=== PATIENT | male | born 1945 | race Caucasian/White ===

== ENCOUNTER 2019-07-16 14:51 | Emergency (ER) | payer MEDICARE, BC, SELFPAY ==
[2019-07-16 15:18] VITALS: BP 146/78; PULSE 91; RESP 18; TEMP 37.6; O2SAT 99
--- NOTE | 2019-07-16 15:49 | ED.BACK ---
HPI - Back Pain/Injury General Chief Complaint: Back Pain/Injury Stated Complaint: middle back pain Time Seen by Provider: 07/16/19 15:53 Source: patient and RN notes reviewed Mode of arrival: ambulatory Limitations: no limitations History of Present Illness HPI Narrative: This is a 74 years old male presented to the office for evaluation of exacerbation of his chronic back pain. Stated he has chronic back pain for over 20 years, normally controlled with [id number] and his pain medication however today pain is pretty bad. He thinks his pain is exacerbated from overwork in his yard over the past couple days. He has been busy working on his garden and building a new workshop. Denies trauma or injury to his back. Denies chest pain, shortness of breath, sweating associated with his back pain. He stated that his nurse practitioner normally give him anti-inflammatory medications to help with his pain when he has an exacerbation. Related Data Home Medications Medication Instructions Recorded Confirmed amiodarone 200 mg tablet 200 mg PO BID tablet 03/05/19 07/16/19 aspirin 81 mg tablet,delayed 81 mg PO DAILY 03/05/19 07/16/19 release blood sugar diagnostic #10 each 03/05/19 07/16/19 cholecalciferol (vitamin D3) 50 2,000 unit PO DAILY 03/05/19 07/16/19 mcg (2,000 unit) capsule glimepiride 4 mg tablet 4 mg PO QAM 03/05/19 07/16/19 lancets #50 each 03/05/19 07/16/19 lisinopril 30 mg tablet 30 mg PO DAILY 03/05/19 07/16/19 metformin 500 mg tablet 500 mg PO TID 03/05/19 07/16/19 metoprolol tartrate 50 mg tablet 50 mg PO Q12H 03/05/19 07/16/19 multivitamin 1 tablet PO DAILY 03/05/19 07/16/19 amlodipine 5 mg tablet 5 mg PO DAILY 03/10/19 07/16/19 rivaroxaban [Xarelto] 20 mg PO DAILY 07/16/19 07/16/19 Allergies Allergy/AdvReac Type Severity Reaction Status Date / Time diltiazem Allergy Mild hives Verified 07/16/19 15:23 Review of Systems Review of Systems: Narrative: CONSTITUTIONAL: Denies fever, chills ENT: Denies congestion CARDIOVASCULAR: Denies chest pain, palpitation, edema. RESPIRATORY: Denies dyspnea, cough GASTROINTESTINAL: Denies abdominal pain, vomiting, diarrhea. GENITOURINARY: Denies urinary symptoms SKIN: Denies rash/blister MUSCULOSKELETAL:Reports acute, chronic back pain; describes as sharping, worse when he moves his arms; pain is slightly better when he lies flat on his back against a hard floor. NEUROLOGIC: Denies lightheaded/dizziness PMFSH Past Medical History Medical History (Updated 07/16/19 @ 16:10 by JOHN Solomon) Atherosclerotic heart disease of [place] coronary artery without angina pectoris Back pain, chronic Essential (primary) hypertension Gait disorder Gastro-esophageal reflux disease without esophagitis Numbness of both lower extremities Pure hypercholesterolemia Type 2 diabetes mellitus without complications Surgical History Surgical History (Updated 07/16/19 @ 16:10 by JOHN Solomon) S/P CABG (coronary artery bypass graft) Family History Family History Father Cerebrovascular accident Mother Family history of lung cancer, Onset Age: 64 Patient's mother is Other Family history of cardiovascular disease Hypertension Social History Social History Smoking status: Former smoker Second hand tobacco smoke exposure: No Smoking end date: 03/25/86 Alcohol intake: current Gender identity (if verbalized by the patient): Male Comments At time of signature, I agree with nursing past medical, surgical, social and family history. There is no relevant family history pertinent to the presenting complaint. Exam Narrative: Exam Narrative: GENERAL: This is a well-nourished, well-developed patient, in no apparent distress. CARDIOVASCULAR: Regular rate and rhythm without murmurs, gallops, or rubs. RESPIRATORY: Clear to a
[2019-07-16] MEDS: methylPREDNISolone ACETATE 40 MG/ML VIAL 80 MG IM (16:11)
== END 2019-07-16 16:26 | disposition home or self-care (01) ==
PROVIDERS: Emergency Provider Nurse Practitioner; PCP Internal Medicine
DX: I25.10 Atherosclerotic heart disease of native coronary artery without angina pectoris (principal); I10 Essential (primary) hypertension; K21.9 Gastro-esophageal reflux disease without esophagitis; E78.00 Pure hypercholesterolemia, unspecified; G89.29 Other chronic pain; E11.9 Type 2 diabetes mellitus without complications; Z79.84 Long term (current) use of oral hypoglycemic drugs; Z79.01 Long term (current) use of anticoagulants; Z79.82 Long term (current) use of aspirin
CPT/HCPCS: 96372; 99213; G0463; J1030

== ENCOUNTER 2019-09-15 08:11 | Outpatient (CLI) | payer MEDICARE, BC, SELFPAY ==
--- NOTE | ~2019-09-15 | US_ITS ---
EXAMINATION: US abdomen complete EXAM DATE: 09/15/2019 09:34 INDICATION: Unspecified abdominal pain. TECHNIQUE: Multiple grayscale and Doppler images of the complete abdomen were obtained (by a technolo gist who performed the scan) and subsequently reviewed. There is no prior study for comparison. FINDINGS: The abdominal aorta is normal in caliber. Visualized portion IVC is patent. The pancreatic head a nd body are normal in appearance. The pancreatic tail is not visualized. The liver has normal echogenicity and contour. There are no focal liver lesions identified. There is no evidence of intrahepatic biliary duct dilation. Portal venous flow was seen in the hepatopedal , normal direction and has normal Doppler waveform. Common bile duct measures 4 mm, which is normal. The gallbladder wall is normal in thickness, with ex pected amount of distention. No sonographic evidence of pericholecystic fluid. There is no cholelit hiases. Technologist performing exam reports patient did not demonstrate sonographic Potts's sign. Please note that this sign is less reliable in patients who have received pain medication. Right kidney: There is normal contour and echogenicity. It measures 12.2 x 5.2 x 5.6 centimeters. T here is a cyst measuring 1.4 cm. There is no hydronephrosis. Left kidney: There is normal contour and echogenicity. It measures 11.8 x 6.0 x 8.9 centimeters. Th ere is a cyst measuring up to 2.2 cm. There is no hydronephrosis. The spleen measures 12.1 centimeters and is morphologically normal. IMPRESSION: Unremarkable complete abdominal ultrasound exam. Reviewed, dictated and finalized at location B.
== END 2019-09-15 08:12 | disposition home or self-care (01) ==
PROVIDERS: PCP Internal Medicine; Visit Provider Physician Assistant
DX: R10.9 Unspecified abdominal pain (principal)
CPT/HCPCS: 76700

== ENCOUNTER 2020-02-26 02:10 | Outpatient (CLI) | payer MEDICARE, BC, SELFPAY ==
[2020-02-26 19:10] LABS: SARS-CoV-2 RNA PCR Negative
== END 2020-02-26 02:11 | disposition home or self-care (01) ==
LOC: ANHCOVIDDT 02:11
PROVIDERS: PCP Internal Medicine; Visit Provider Specialist
DX: Z01.818 Encounter for other preprocedural examination (principal); Z20.828 Contact with and (suspected) exposure to other viral communicable diseases
CPT/HCPCS: 87635; C9803; U0003

== ENCOUNTER 2020-02-29 08:50 | Day surgery (SDC) | payer MEDICARE, BC, SELFPAY ==
[2020-02-26 15:30] VITALS: BMI 30.4
--- NOTE | 2020-02-29 02:57 | ECG_ITS ---
Measurements Intervals [place] Rate: 79 P: [place]: 0 QRS: 26 QRSD: 120 T: -4 QT: 427 QTc: 491 Interpretive Statements ATRIAL FIBRILLATION INTRAVENTRICULAR CONDUCTION DELAY CONSIDER INFERIOR INFARCT, AGE INDETERMINATE BORDERLINE T WAVE ABNORMALITY- ANTERIOR LEADS ABNORMAL ECG Electronically Signed On 02-29-2020 9:23:51 BUTTON FACING MACHINE OPERATOR by Arnold Lucero D.O.
--- NOTE | 2020-02-29 09:50 | WPDMODSED ---
Moderate Sedation Note-Pt Data Patient Data Diagnosis: Recurrent atrial fibrillation Present Complaint: This is a 74-year-old man with history of coronary artery disease, previous PCI and CABG. Patient also has atrial fibrillation being treated with amiodarone and systemic anticoagulation. He recently was found to have a symptomatic recurrence of his AFib in is admitted as an outpatient for an attempt at electrical cardioversion Procedure to be performed/Plan: DC cardioversion Allergies Allergy/AdvReac Type Severity Reaction Status Date / Time diltiazem Allergy Mild hives Verified 02/26/20 15:56 Home Medications Medication Instructions Recorded Confirmed Type amiodarone 200 mg tablet 200 mg PO BID tablet 03/05/19 02/26/20 History aspirin 81 mg tablet,delayed 81 mg PO DAILY 03/05/19 02/26/20 History release blood sugar diagnostic #10 each 03/05/19 07/16/19 History lancets #50 each 03/05/19 07/16/19 History lisinopril 30 mg tablet 30 mg PO DAILY 03/05/19 02/26/20 History metoprolol tartrate 50 mg tablet 50 mg PO Q12H 03/05/19 02/26/20 History multivitamin 1 tablet PO DAILY 03/05/19 02/26/20 History amlodipine 5 mg tablet 5 mg PO DAILY 03/10/19 02/26/20 History rivaroxaban [Xarelto] 20 mg PO DAILY 07/16/19 02/26/20 History apremilast 30 mg tablet 30 mg PO QAM AND QPM 07/31/19 02/26/20 History hydrochlorothiazide 25 mg tablet 25 mg PO DAILY 07/31/19 02/26/20 History rosuvastatin 20 mg tablet 20 mg PO DAILY 07/31/19 02/26/20 History pantoprazole 40 mg tablet,delayed 40 mg PO QAM #90 tablet 12/29/19 02/26/20 Rx release metformin 500 mg tablet 500 mg PO TID #270 tablet 02/02/20 02/26/20 Rx glimepiride 4 mg tablet 4 mg PO QAM #90 tablet 02/12/20 02/26/20 Rx Sedation/Anesthesia: No previous sedation/anesthesia problems (including family history). [facility] Past Medical History Medical History (Updated 09/01/19 @ 16:06 by Rick Landrum PA-C) Atherosclerotic heart disease of [place] coronary artery without angina pectoris Back pain, chronic Essential (primary) hypertension Gait disorder Gastro-esophageal reflux disease without esophagitis Numbness of both lower extremities Pure hypercholesterolemia Type 2 diabetes mellitus without complications Surgical History Surgical History S/P CABG (coronary artery bypass graft) Family History Family History Father Cerebrovascular accident Mother Family history of lung cancer, Onset Age: 64 Patient's mother is Other Family history of cardiovascular disease Hypertension Social History Social History Smoking status: Former smoker Tobacco type: cigarettes Second hand tobacco smoke exposure: No Smoking end date: 03/25/94 Alcohol intake: current Drinks per week: 1 Substance use: never Substance use type: does not use Living arrangements: with family Gender identity (if verbalized by the patient): Male Sexual Orientation (if Verbalized by the Patient): Straight or Heterosexual Spiritual care concerns: No Mod Sed Physical Exam Physical Exam Pre Procedural Exam: Normal: Appearance, Neck, Throat, Airway, Lungs, Heart Size, Neuro Exam and Extremities and Variation: Heart Rate and Heart Rhythm (Irregularly irregular) Hours since solid foods: 12 Hours since liquid intake: 12 Internal Medicine - PN: Obj Da Labs CBC & Chem 7: 02/29/20 09:22 02/29/20 09:22 ASA Classification/Sedation ASA Classification/Sedation Risks: Risks, benefits and alternatives explained and patient/family accepted plan for sedation. Patient re-evaluated immediately prior to sedation.
--- NOTE | 2020-02-29 09:52 | PM.IMHP ---
H&P: HPI History of Present Illness Date/Time: 02/29/20 09:52 Chief complaint: Afib Narrative: Blas Pickett is a 74 year old male with an established history of coronary artery disease and atrial fibrillation. He is admitted today as an outpatient for an attempt at electrical DC cardioversion of recurrence of atrial fib. Patient has a longstanding history of coronary disease and in the remote past underwent RCA stenting. He did very well for many years then the vessel progressed to a total occlusion with collateral filling from a non diseased left coronary artery. He then developed recurrent ischemic symptoms in 2016 at which time angiography demonstrated multivessel disease. He underwent surgical revascularization at that time. In addition to this he has a history of atrial fibrillation which has electrically cardioverted in the past. For a period of time he was treated with sotalol as his antiarrhythmic because of recurrences he was transition to amiodarone treatment and has been maintaining sinus rhythm. I last saw him in the office in September of this year which time he was doing well. In let the last week he contacted the office staff indicating he has symptoms of recurrent atrial fibrillation. An ECG in the office confirm the diagnosis and he was in therefore scheduled for attempted cardioversion electrically today. Review of Systems Constitutional: Constitutional: Reports fatigue and Reports lethargy Eyes: Eyes: Reports no additional eye complaints ENT: Reports system reviewed and no additional complaints, except as documented Cardiovascular: Cardiovascular: Reports as per HPI Respiratory: Respiratory: Reports dyspnea on exertion Gastrointestinal: Gastrointestinal: Reports no additional gastrointestinal complaints Musculoskeletal: Musculoskeletal: Reports no additional musculoskeletal complaints Integumentary/Breasts: Skin/Breast: Reports system reviewed and no additional complaints, except as docu Neurologic: Reports system reviewed and no additional complaints, except as documented [facility] Past Medical History Medical History (Updated 09/01/19 @ 16:06 by Rick Landrum PA-C) Atherosclerotic heart disease of [place] coronary artery without angina pectoris Back pain, chronic Essential (primary) hypertension Gait disorder Gastro-esophageal reflux disease without esophagitis Numbness of both lower extremities Pure hypercholesterolemia Type 2 diabetes mellitus without complications Surgical History Surgical History S/P CABG (coronary artery bypass graft) Family History Family History Father Cerebrovascular accident Mother Family history of lung cancer, Onset Age: 64 Patient's mother is Other Family history of cardiovascular disease Hypertension Social History Social History Smoking status: Former smoker Tobacco type: cigarettes Second hand tobacco smoke exposure: No Smoking end date: 03/25/94 Alcohol intake: current Drinks per week: 1 Substance use: never Substance use type: does not use Living arrangements: with family Gender identity (if verbalized by the patient): Male Sexual Orientation (if Verbalized by the Patient): Straight or Heterosexual Spiritual care concerns: No Meds Home Medications and Allergies Home Medications Medication Instructions Recorded Confirmed Type amiodarone 200 mg tablet 200 mg PO BID tablet 03/05/19 02/26/20 History aspirin 81 mg tablet,delayed 81 mg PO DAILY 03/05/19 02/26/20 History release blood sugar diagnostic #10 each 03/05/19 07/16/19 History lancets #50 each 03/05/19 07/16/19 History lisinopril 30 mg tablet 30 mg PO DAILY 03/05/19 02/26/20 History metoprolol tartrate 50 mg tablet 50 mg PO Q12H 03/05/19 02/26/20 History multivitamin 1 t
[2020-02-29 09:54] LABS: Anion Gap 7 mmol/L (8-16); Blood Urea Nitrogen 17 mg/dL (9-20); Calcium 9.5 mg/dL (8.4-10.2); Carbon Dioxide 32 mmol/L (22-30); Chloride 100 mmol/L (98-107); Estimated CRCL calculation 66 ml/min; Estimated Glomerular Filt Rate > 60; Glucose 174 mg/dL (75-110); Magnesium 1.7 mg/dL (1.6-2.3); Sodium 139 mmol/L (137-145)
[2020-02-29 10:05] VITALS: BP 147/84; PULSE 90; RESP 16; TEMP 36.6; O2SAT 98
[2020-02-29 10:10] VITALS: BP 147/84; PULSE 72; RESP 16; O2SAT 98
--- NOTE | 2020-02-29 10:11 | ECG_ITS ---
Measurements Intervals [place] Rate: 69 P: 11 [place]: 202 QRS: 23 QRSD: 117 T: -6 QT: 458 QTc: 494 Interpretive Statements SINUS RHYTHM INTRAVENTRICULAR CONDUCTION DELAY BORDERLINE ST-T WAVE ABNORMALITY- INFERIOR LEADS PROLONGED QT INTERVAL ABNORMAL ECG Electronically Signed On 02-29-2020 14:11:21 SOURCING ASSOCIATE by Arnold Lucero D.O.
--- NOTE | 2020-02-29 10:11 | WPDCARDPROC ---
Cardiac Cath Procedure Note Date of procedure:: 02/29/20 Performing physician:: Nawaf Rodriguez MD Indication:: Recurrent atrial fibrillation Brief clinical history:: This is a 74-year-old man with coronary disease, previous bypass grafting admitted with a symptomatic recurrence of atrial fib for an attempt at electrical outpatient cardioversion Procedure Procedure performed:: DC cardioversion Sedation/Medication given:: Propofol 100 mg total dosage Estimated blood loss:: No blood loss Procedure note:: Patient was brought to the cardiac catheterization lab holding area in the postabsorptive state. The patient was placed in the supine position with defibrillator patches in the AP position. The patient was then sedated with it with propofol in aliquots a total dosage of 100 mg was given which provided very good sedation. He was cardioverted with 200 joules in a synchronized fashion x1 shock restoring normal sinus rhythm. Findings:: As above Conclusion:: Recurrent atrial fibrillation symptomatic with fatigue and dyspnea. Patient has been successfully converted back to sinus rhythm using 200 joules x1 shock. Nawaf Rodriguez MD [facility]
[2020-02-29 10:15] VITALS: BP 133/75; PULSE 70; RESP 18; TEMP 36.5; O2SAT 96
[2020-02-29 10:30] VITALS: BP 122/74; PULSE 71; RESP 17; O2SAT 96
[2020-02-29 10:45] VITALS: BP 133/71; PULSE 69; RESP 20; O2SAT 95
[2020-02-29 11:00] VITALS: BP 128/74; PULSE 68; RESP 18; O2SAT 97
--- NOTE | 2020-02-29 11:59 | SUR.PHASEII ---
1150- Patient A &O x 4 at time of discharge. VSS, NSR, denies pain, ambulatory, and PIV removed. Patient provided discharge instructions and education on CV procedure and moderate sedation. All questions answered by RN- patient verbalizes understanding. Patient discharged home in wheelchair and picked up by .
== END 2020-02-29 11:50 | disposition home or self-care (01) ==
PROVIDERS: PCP Internal Medicine; Visit Provider Specialist
PROC: 5A2204Z Restoration of Cardiac Rhythm, Single (ICD-10-PCS; principal; 2020-02-29 10:00)
DX: I48.91 Unspecified atrial fibrillation (principal); I25.10 Atherosclerotic heart disease of native coronary artery without angina pectoris; Z95.1 Presence of aortocoronary bypass graft; I10 Essential (primary) hypertension; K21.9 Gastro-esophageal reflux disease without esophagitis; E11.9 Type 2 diabetes mellitus without complications; E78.00 Pure hypercholesterolemia, unspecified; Z87.891 Personal history of nicotine dependence; Z79.82 Long term (current) use of aspirin; Z79.01 Long term (current) use of anticoagulants; Z79.84 Long term (current) use of oral hypoglycemic drugs
CPT/HCPCS: 36415; 80048; 83735; 92960; 93005; J2704; J7040

== ENCOUNTER → 2020-04-28 09:20 | Outpatient (CLI) | payer MEDICARE, BC, SELFPAY ==
--- NOTE | ~2020-04-28 | CT_ITS ---
EXAMINATION: CT thoracic spine wo con, CT lumbar spine wo con EXAM DATE: 04/28/2020 09:41 INDICATION: Thoracic back pain. Lumbar back pain. TECHNIQUE: Spiral CT thoracolumbar spine was performed without contrast. Axial, coronal and sagittal images of the thoracic spine were reviewed. Axial, coronal and sagittal images of the lumbar spine we re reviewed. The dose-length product (DLP) for this examination was 1005.70 (accession [id number] ), 938.72 (accession [id number]) mGy-cm. The exposure was tailored according to patient size (au to mA exposure control), and iterative reconstruction (ASIR) was used as additional dose reduction te chnique. There is no prior study for comparison. FINDINGS: THORACIC SPINE: There is mild to moderate mid and lower thoracic disc disease. There are no acute fra ctures identified. Mild diffuse loss of mid thoracic vertebral body heights, chronic. The vertebral b odies are aligned in the AP dimension. Paraspinal soft tissue is unremarkable. Mild cervicothoracic l evoscoliosis. There is mild to moderate diffuse thoracic facet arthropathy. There is severe left neur al foraminal stenosis at C7-T1. There is moderate right neural foraminal stenosis from T4 through T6. Less neural foraminal stenosis at other lumbar levels. No appreciable central canal stenosis. LUMBAR SPINE: There is mild to moderate loss of the L4-5 disc height. The vertebral body and disc hei ghts are otherwise well maintained. The vertebral bodies are aligned in the AP dimension. There are n o acute fractures identified. No spondylolysis. Level by level evaluation: T12-L1: Disc does not extend beyond the endplate margin. Facet arthropathy: Mild. Neural foraminal stenosis: No stenosis. Central canal stenosis: No stenosis. L1-L2: There is a minimal diffuse disc bulge. Facet arthropathy: Mild. Neural foraminal stenosis: No stenosis. Central canal stenosis: No stenosis. L2-L3: There is a mild diffuse disc bulge. Facet arthropathy: Mild. Neural foraminal stenosis: Minimal left. Central canal stenosis: Mild. L3-L4: There is a mild diffuse disc bulge. Facet arthropathy: Mild to moderate. Neural foraminal stenosis: Mild to moderate right, mild left. Central canal stenosis: Mild. L4-L5: There is a moderate diffuse disc bulge. Facet arthropathy: Moderate. Neural foraminal stenosis: Moderate bilateral. Central canal stenosis: Mild to moderate. L5-S1: There is a mild diffuse disc bulge. Facet arthropathy: Moderate. Neural foraminal stenosis: Moderate left, mild to moderate right. Central canal stenosis: Mild. IMPRESSION: 1. Up to moderate lower lumbar spondylosis. 2. C7-T1 severe left neural foraminal stenosis. Reviewed, dictated and finalized at location B. ING MACHINE OPERATOR IMPRESSION: 1. Up to moderate lower lumbar spondylosis. 2. C7-T1 severe left neural foraminal stenosis.
== END ==
PROVIDERS: PCP Internal Medicine; Visit Provider Nurse Practitioner Adult Health
DX: M47.26 Other spondylosis with radiculopathy, lumbar region (principal)
CPT/HCPCS: 72128; 72131

== ENCOUNTER 2020-05-22 14:48 | Emergency (ER) | payer MEDICARE, BC, SELFPAY ==
--- NOTE | ~2020-05-22 | XR_ITS ---
EXAMINATION: XR chest 2V DATE: 05/22/2020 15:21 INDICATION: Cough. TECHNIQUE: Frontal and lateral views of the chest were obtained. COMPARISON: Chest 2 views 01/01/2018, CT thoracic spine 04/28/20 FINDINGS: The chest demonstrates clear lungs without pneumonia, pleural effusion, or pneumothorax. Th e heart size is normal. Median sternotomy wires and mediastinal surgical clips are seen, likely from prior coronary artery bypass grafting. There is mild chronic anterior wedging of a midthoracic verteb ral body. IMPRESSION: 1. No acute cardiopulmonary disease. Reviewed, dictated and finalized at location A. LE CARRIER
[2020-05-22 14:57] VITALS: BP 152/81; PULSE 81; RESP 18; TEMP 36.7; O2SAT 96
--- NOTE | 2020-05-22 15:08 | ED.GENADULT ---
HPI - General Adult General Chief complaint: Upper Respiratory Infection Stated complaint: chest cold Source: patient Mode of arrival: ambulatory Limitations: no limitations History of Present Illness HPI narrative: Patient presents for evaluation of cough for the last 2 weeks. He indicates the cough is intermittently productive of clear/white sputum. He states symptoms started as a head cold and then went down into the chest . He has associated shortness of breath both with exertion and at rest. He denies any associated chest pain. Denies fever, chills, leg swelling, joint pain, nausea, vomiting. No recent sick contacts. Of note he has an underlying history of hypertension, hyperlipidemia, diabetes, atrial fibrillation, coronary artery disease status post stent placement and bypass surgery. She underwent cardioversion in February 2020 and has been compliant with Xarelto and beta-lorene since that time. He has not experienced any recurrent symptoms to alert him that he is back in atrial fibrillation. He indicates prior to his last hospitalization he was cognizant of the fact that he was in atrial fibrillation as his heart skipped beat . Of note, he did receive his first Covid vaccination. He does not smoke. He contacted his primary provider that gave him prescription for Tessalon, which he indicates was ineffective. Prior to that time, he tried robitussin, which did not particularly help. Related Data Home Medications Medication Instructions Recorded Confirmed aspirin 81 mg tablet,delayed 81 mg PO DAILY 03/05/19 05/22/20 release blood sugar diagnostic #10 each 03/05/19 03/11/20 lancets #50 each 03/05/19 03/11/20 lisinopril 30 mg tablet 30 mg PO DAILY 03/05/19 05/22/20 metoprolol tartrate 50 mg tablet 50 mg PO Q12H 03/05/19 03/11/20 multivitamin 1 tablet PO DAILY 03/05/19 03/11/20 amlodipine 5 mg tablet 5 mg PO DAILY 03/10/19 05/22/20 Xarelto 20 mg PO DAILY 07/16/19 03/11/20 apremilast 30 mg tablet 30 mg PO QAM AND QPM 07/31/19 05/22/20 hydrochlorothiazide 25 mg tablet 25 mg PO DAILY 07/31/19 05/22/20 rosuvastatin 20 mg tablet 20 mg PO DAILY 07/31/19 03/11/20 amiodarone 200 mg tablet 400 mg PO BID tablet 03/11/20 05/22/20 Allergies Allergy/AdvReac Type Severity Reaction Status Date / Time diltiazem Allergy Mild hives Verified 03/11/20 09:28 Review of Systems Review of Systems: Narrative: CONSTITUTIONAL: Denies fever, chills, or sweats. EYES: Denies visual changes, redness, or discharge. ENT: Denies rhinorrhea, congestion, sore throat, or otalgia. CARDIOVASCULAR: Denies chest pain, palpitations, or edema. RESPIRATORY: Reports cough that is intermittently productive of clear/white sputum. Reports SOB. GASTROINTESTINAL: Denies abdominal pain, nausea, vomiting, or diarrhea. GENITOURINARY: Denies dysuria or hematuria. SKIN: Denies rash or itching. MUSCULOSKELETAL: Denies back pain, joint pain, or myalgia. NEUROLOGIC: Denies headache, numbness, dizziness, or weakness. PSYCHIATRIC: Denies anxiety or depression. [facility] Past Medical History Medical History Atherosclerotic heart disease of [place] coronary artery without angina pectoris Atrial fibrillation Back pain, chronic Essential (primary) hypertension Gait disorder Gastro-esophageal reflux disease without esophagitis Numbness of both lower extremities Pure hypercholesterolemia Type 2 diabetes mellitus without complications Surgical History Surgical History S/P CABG (coronary artery bypass graft) Family History Family History Father Cerebrovascular accident Mother Family history of lung cancer, Onset Age: 64 Patient's mother is Other Family history of cardiovascular disease Hypertension Social History Social History (Reviewed 05/22/20 @ 15:20 by Kael
--- NOTE | 2020-05-22 15:14 | ECG_ITS ---
Measurements Intervals [place] Rate: 78 P: 27 VT: 172 QRS: 28 QRSD: 112 T: 20 QT: 417 QTc: 477 Interpretive Statements SINUS RHYTHM INTRAVENTRICULAR CONDUCTION DELAY NONSPECIFIC ST & T-WAVE ABNORMALITY- ANTEROLAT/HIGH LAT LEADS BORDERLINE ECG Electronically Signed On 05-23-2020 7:17:08 SENIOR CYBER SECURITY ANALYST by Arnold Lucero D.O.
== END 2020-05-22 15:50 | disposition home or self-care (01) ==
PROVIDERS: Emergency Provider Nurse Practitioner; PCP Internal Medicine
DX: R05 Cough (principal); Z20.822 Contact with and (suspected) exposure to COVID-19; I48.91 Unspecified atrial fibrillation; I10 Essential (primary) hypertension; Z87.891 Personal history of nicotine dependence; I25.10 Atherosclerotic heart disease of native coronary artery without angina pectoris; K21.9 Gastro-esophageal reflux disease without esophagitis; E78.00 Pure hypercholesterolemia, unspecified; E11.9 Type 2 diabetes mellitus without complications
CPT/HCPCS: 71046; 87426; 93005; 99213; C9803; G0463

== ENCOUNTER 2020-05-23 08:51 | Outpatient (CLI) | payer MEDICARE, BC, SELFPAY ==
--- NOTE | ~2020-05-23 | NM_ITS ---
EXAMINATION: NM bone scan whole body DATE: 05/23/2020 11:45 INDICATION: Chronic pain disorder TECHNIQUE: 24.2 mCi Tc-99m HDP was administered intravenously. Delayed whole-body scintigrams were o btained. COMPARISON: CT thoracic and lumbar spine dated 04/28/2020 and chest radiograph dated 05/22/2020 FINDINGS: Mild likely degenerative joint centered uptake at the left knee most prominent at the medial and [place] llofemoral compartments. A few tiny foci of increased uptake along the sternum likely related to prio r median sternotomy with sternotomy wires evident on prior chest radiograph. No other foci of abnorma l bone uptake. Mild upper thoracic levocurvature. No abnormal soft tissue uptake. IMPRESSION: 1. Mild likely degenerative joint centered uptake at the left knee. 2. No bone lesions suspicious for malignancy/metastatic disease. Reviewed, dictated and finalized at location B. HOLOGY LECTURER
== END 2020-05-23 08:52 | disposition home or self-care (01) ==
PROVIDERS: PCP Internal Medicine; Visit Provider Nurse Practitioner Adult Health
DX: G89.4 Chronic pain syndrome (principal)
CPT/HCPCS: 78306; A9561

== ENCOUNTER 2022-04-27 01:53 | Day surgery (SDC) | payer MEDICARE, BC, SELFPAY ==
[2022-04-17 14:53] VITALS: BMI 32.3
--- NOTE | 2022-04-26 12:59 | WPDANESEPPF ---
Anes - Initial Pre Proc Eval Procedure: Operation Date: 04/27/22 09:30 Proposed Procedures p Esophagogastroduodenoscopy - Gavin Enciso MD Date/Time: 04/26/22 12:59 Surgeon: Gavin Enciso MD Pre Op Diagnosis: RANDALL Patient Data Age: 77 Gender: M Height: 1.8 m Weight: 105.2 kg Allergies Allergy/AdvReac Type Severity Reaction Status Date / Time diltiazem Allergy Intermediate hives Verified 04/27/22 08:29 Home Medications Medication Instructions Recorded Confirmed Type blood sugar diagnostic #10 ea 03/05/19 04/09/22 History lancets #50 ea 03/05/19 04/09/22 History lisinopril 30 mg tablet 30 mg PO DAILY 03/05/19 04/17/22 History metoprolol tartrate 50 mg tablet 50 mg PO Q12H 03/05/19 04/17/22 History multivitamin (Multiple Vitamins 1 tablet PO DAILY 03/05/19 04/17/22 History tablet) amlodipine 5 mg tablet 5 mg PO DAILY 03/10/19 04/17/22 History rivaroxaban 20 mg tablet (Xarelto) 20 mg PO DAILY 07/16/19 04/17/22 History hydrochlorothiazide 25 mg tablet 25 mg PO DAILY 07/31/19 04/17/22 History rosuvastatin 20 mg tablet 20 mg PO DAILY 07/31/19 04/17/22 History amiodarone 200 mg tablet 200 mg PO DAILY 03/11/20 04/17/22 History clopidogrel 75 mg tablet (Plavix) 75 mg PO DAILY 09/06/20 04/17/22 History glimepiride 4 mg tablet (Amaryl) 4 mg PO QAM #90 tabs 09/12/21 04/17/22 Rx tramadol 50 mg tablet 50 mg PO Q6H PRN Pain 09/19/21 04/17/22 History epinephrine 0.3 mg/0.3 mL 0.3 mg (0.3 mL) IM ONCE #1 ea 09/27/21 04/17/22 Rx injection, auto-injector (EpiPen) gabapentin 300 mg capsule 300 mg PO BID 09/27/21 04/17/22 History pantoprazole 40 mg tablet,delayed 40 mg PO QAM #90 tabs 12/21/21 04/17/22 Rx release metformin 500 mg tablet 500 mg PO TID #270 tabs 02/21/22 04/17/22 Rx ferrous sulfate 325 mg (65 mg 325 mg PO BID #60 tabs 03/12/22 04/17/22 Rx iron) tablet codeine 10 mg-guaifenesin 100 mg/5 5 ml PO .hs PRN cough #60 mL 04/13/22 04/17/22 Rx mL oral liquid azelastine 137 mcg (0.1 %) nasal 2 spray intranasal Q12H PRN 04/17/22 04/17/22 History spray aerosol Allergy Symptoms betamethasone valerate 0.1 % 1 applic topical BID PRN SKIN 04/30/22 Rx topical cream REACTION #45 grams sodium,potassium,mag sulfates 17.5 See Rx Instructions PO .COMPLEX 05/02/22 Rx gram-3.13 gram-1.6 gram oral soln #354 mL (Suprep Bowel Prep Kit) Patient hx anesthesia problems: none Family hx anesthesia problems: none Results Review: All pre-operative results and documents have been reviewed as part of the pre-operative evaluation. [facility] Past Medical History Medical History (Updated 04/27/22 @ 08:47 by Gavin Enciso MD) Atherosclerotic heart disease of [place] coronary artery without angina pectoris Atrial fibrillation Back pain, chronic Bilateral carotid artery dissection CAD (coronary artery disease) Essential (primary) hypertension Gait disorder Gastro-esophageal reflux disease without esophagitis Numbness of both lower extremities Pure hypercholesterolemia PVD (peripheral vascular disease) Type 2 diabetes mellitus without complications Surgical History Surgical History (Updated 04/26/22 @ 13:00 by David Randolph DO) History of coronary artery stent placement S/P CABG (coronary artery bypass graft) x4 vessel, 07/2016 Family History Family History Father Cerebrovascular accident Mother Family history of lung cancer, Onset Age: 64 Patient's mother is Other Family history of cardiovascular disease Hypertension Social History Social History (Updated 04/09/22 @ 11:06 by Parul Hernandez MA) Smoking packs per day: 2 Smoking cigarettes per day: 40.0 Years smoked: 31 Smoking pack-years: 62.00 Smoking status: Former smoker Tobacco type: cigarettes Second hand tobacco smoke exposure: No Smoking end date: 03/25/94 Alcohol intake: current Drinks per week: 14 Alcohol use details: JANICE
[2022-04-27 08:35] VITALS: BP 137/85; PULSE 82; RESP 18; TEMP 36.2; O2SAT 99
--- NOTE | 2022-04-27 08:45 | PM.HPGS ---
History of Present Illness History of Present Illness Consent: Risks, benefits, and alternatives have been discussed and questions answered. Patient agrees to proceed with procedure. Chief complaint: RANDALL Narrative: Blas Pickett is a 77 year old male Presents for colonoscopy an EGD to evaluate iron deficiency anemia. Patient has a history of atherosclerotic heart disease. Has a history of bypass grafting , And also heart stenting, And atrial fibrillation. in the past is on chronic anticoagulation with Xarelto and Plavix. Since August has noticed a decline in hemoglobin. Currently felt have iron deficiency anemia. Hemoglobin no decline on since starting iron. He has had no obvious blood in his stools. He does bruise easily on his arms. He has no history of blood in his urine or nose bleeds. Colonoscopy an EGD requested to assess for potential GI contributing causes for anemia. Patient states he has not had a stool Hemoccult performed recently. Review of Systems Review of Systems: Review of systems noncontributory. [facility] Past Medical History Medical History (Updated 04/27/22 @ 08:47 by Gavin Enciso MD) Atherosclerotic heart disease of [place] coronary artery without angina pectoris Atrial fibrillation Back pain, chronic Bilateral carotid artery dissection CAD (coronary artery disease) Essential (primary) hypertension Gait disorder Gastro-esophageal reflux disease without esophagitis Numbness of both lower extremities Pure hypercholesterolemia PVD (peripheral vascular disease) Type 2 diabetes mellitus without complications Surgical History Surgical History (Updated 04/26/22 @ 13:00 by David Randolph DO) History of coronary artery stent placement S/P CABG (coronary artery bypass graft) x4 vessel, 07/2016 Family History Family History Father Cerebrovascular accident Mother Family history of lung cancer, Onset Age: 64 Patient's mother is Other Family history of cardiovascular disease Hypertension Social History Social History (Updated 04/09/22 @ 11:06 by Parul Hernandez MA) Smoking packs per day: 2 Smoking cigarettes per day: 40.0 Years smoked: 31 Smoking pack-years: 62.00 Smoking status: Former smoker Tobacco type: cigarettes Second hand tobacco smoke exposure: No Smoking end date: 03/25/94 Alcohol intake: current Drinks per week: 14 Alcohol use details: [employer] COKE OR STRAIGHT Substance use: current Substance use type: marijuana Other substance usage details: GUMMIES OCC. Lack of Transportation: No Lack of Food: Never True Current Housing: I Have Housing Concerned About Future Housing: No Difficulty Paying Gas/Electric Bills: No Difficulty Paying for Meds: No Currently Unemployed: No Education: Trade/Vocational Certificate Difficulty w/ Childcare or Family Care: No Living arrangements: with family Gender identity (if verbalized by the patient): Male Sexual Orientation (if Verbalized by the Patient): Straight or Heterosexual Spiritual care concerns: No Meds Home Medications and Allergies Home Medications Medication Instructions Recorded Confirmed Type blood sugar diagnostic #10 ea 03/05/19 04/09/22 History lancets #50 ea 03/05/19 04/09/22 History lisinopril 30 mg tablet 30 mg PO DAILY 03/05/19 04/17/22 History metoprolol tartrate 50 mg tablet 50 mg PO Q12H 03/05/19 04/17/22 History multivitamin (Multiple Vitamins 1 tablet PO DAILY 03/05/19 04/17/22 History tablet) amlodipine 5 mg tablet 5 mg PO DAILY 03/10/19 04/17/22 History rivaroxaban 20 mg tablet (Xarelto) 20 mg PO DAILY 07/16/19 04/17/22 History hydrochlorothiazide 25 mg tablet 25 mg PO DAILY 07/31/19 04/17/22 History rosuvastatin 20 mg tablet 20 mg PO DAILY 07/31/19 04/17/22 History amiodarone 200 mg tablet 200 mg PO DAILY 03/11/20 04/17/22 History clopidogrel 75 mg tablet (Plavix
[2022-04-27 08:49] LABS: Glucose Point of Care 200 mg/dl (65-105)
[2022-04-27] MEDS: LACTATED RINGERS 1,000 ML 150 ML IV CONT (08:49)
[2022-04-27 09:24] VITALS: BP 140/74; PULSE 95; RESP 22; O2SAT 96
[2022-04-27 09:34] VITALS: BP 113/68; PULSE 86; RESP 22; O2SAT 95
[2022-04-27 09:44] VITALS: BP 132/86; PULSE 93; RESP 22; O2SAT 96
== END 2022-04-27 10:00 | disposition home or self-care (01) ==
PROVIDERS: PCP Internal Medicine; Visit Provider Internal Medicine Gastroenterology
PROC: 0DJ08ZZ Inspection of Upper Intestinal Tract, Via Natural or Artificial Opening Endoscopic (ICD-10-PCS; CPT 43235; principal; 2022-04-27 09:30)
DX: D50.9 Iron deficiency anemia, unspecified (principal); I25.10 Atherosclerotic heart disease of native coronary artery without angina pectoris; I48.91 Unspecified atrial fibrillation; I10 Essential (primary) hypertension; K21.9 Gastro-esophageal reflux disease without esophagitis; E11.51 Type 2 diabetes mellitus with diabetic peripheral angiopathy without gangrene; E78.00 Pure hypercholesterolemia, unspecified; Z87.891 Personal history of nicotine dependence; F12.90 Cannabis use, unspecified, uncomplicated; Z79.01 Long term (current) use of anticoagulants; Z79.84 Long term (current) use of oral hypoglycemic drugs; Z79.02 Long term (current) use of antithrombotics/antiplatelets; Z95.1 Presence of aortocoronary bypass graft; Z95.5 Presence of coronary angioplasty implant and graft; E66.9 Obesity, unspecified; Z68.31 Body mass index [BMI] 31.0-31.9, adult
CPT/HCPCS: 43235; 82948; J2704; J7120

== ENCOUNTER 2022-06-01 01:35 | Day surgery (SDC) | payer MEDICARE, BC, SELFPAY ==
[2022-05-22 14:49] VITALS: BMI 30.7
[2022-06-01 06:57] LABS: Glucose Point of Care 164 mg/dl (65-105)
[2022-06-01 07:02] VITALS: BP 138/86; PULSE 85; RESP 18; TEMP 36.6; O2SAT 98
[2022-06-01] MEDS: LACTATED RINGERS 1,000 ML 150 ML IV CONT (07:10)
--- NOTE | 2022-06-01 07:37 | WPDANESEPPF ---
Anes - Initial Pre Proc Eval Procedure: Operation Date: 06/01/22 08:00 Proposed Procedures p Screening Colonoscopy - Gavin Enciso MD Date/Time: 06/01/22 07:37 Surgeon: Gavin Enciso MD Pre Op Diagnosis: neoplasm screening Patient Data Age: 77 Gender: M Height: 1.8 m Weight: 100.6 kg Last Vital Signs Temp 36.6 C 06/01/22 07:02 Pulse 85 06/01/22 07:02 Resp 18 06/01/22 07:02 BP 138/86 06/01/22 07:02 Pulse Ox 98 06/01/22 07:02 O2 Del Method Room Air 06/01/22 07:02 Allergies Allergy/AdvReac Type Severity Reaction Status Date / Time diltiazem Allergy Intermediate hives Verified 06/01/22 06:56 Home Medications Medication Instructions Recorded Confirmed Type blood sugar diagnostic #10 ea 03/05/19 06/01/22 History lancets #50 ea 03/05/19 06/01/22 History lisinopril 30 mg tablet 30 mg PO DAILY 03/05/19 06/01/22 History metoprolol tartrate 50 mg tablet 50 mg PO Q12H 03/05/19 06/01/22 History multivitamin (Multiple Vitamins 1 tablet PO DAILY 03/05/19 06/01/22 History tablet) amlodipine 5 mg tablet 5 mg PO DAILY 03/10/19 06/01/22 History rivaroxaban 20 mg tablet (Xarelto) 20 mg PO DAILY 07/16/19 06/01/22 History hydrochlorothiazide 25 mg tablet 25 mg PO DAILY 07/31/19 06/01/22 History rosuvastatin 20 mg tablet 20 mg PO DAILY 07/31/19 06/01/22 History amiodarone 200 mg tablet 200 mg PO DAILY 03/11/20 06/01/22 History clopidogrel 75 mg tablet (Plavix) 75 mg PO DAILY 09/06/20 06/01/22 History glimepiride 4 mg tablet (Amaryl) 4 mg PO QAM #90 tabs 09/12/21 06/01/22 Rx tramadol 50 mg tablet 50 mg PO Q6H PRN Pain 09/19/21 06/01/22 History epinephrine 0.3 mg/0.3 mL 0.3 mg (0.3 mL) IM ONCE #1 ea 09/27/21 06/01/22 Rx injection, auto-injector (EpiPen) gabapentin 300 mg capsule 300 mg PO BID 09/27/21 06/01/22 History pantoprazole 40 mg tablet,delayed 40 mg PO QAM #90 tabs 12/21/21 06/01/22 Rx release metformin 500 mg tablet 500 mg PO TID #270 tabs 02/21/22 06/01/22 Rx ferrous sulfate 325 mg (65 mg 325 mg PO BID #60 tabs 03/12/22 06/01/22 Rx iron) tablet codeine 10 mg-guaifenesin 100 mg/5 5 ml PO .hs PRN cough #60 mL 04/13/22 06/01/22 Rx mL oral liquid azelastine 137 mcg (0.1 %) nasal 2 spray intranasal Q12H PRN 04/17/22 06/01/22 History spray aerosol Allergy Symptoms betamethasone valerate 0.1 % 1 applic topical BID PRN SKIN 04/30/22 06/01/22 Rx topical cream REACTION #45 grams sodium,potassium,mag sulfates 17.5 See Rx Instructions PO .COMPLEX 05/02/22 06/01/22 Rx gram-3.13 gram-1.6 gram oral soln #354 mL (Suprep Bowel Prep Kit) Laboratory Tests 06/01/22 06:51 POC Capillary Glucose 164 mg/dl H mg/dl (65-105) Patient hx anesthesia problems: none Family hx anesthesia problems: none Results Review: All pre-operative results and documents have been reviewed as part of the pre-operative evaluation. [facility] Past Medical History Medical History (Updated 04/27/22 @ 08:47 by Gavin Enciso MD) Atherosclerotic heart disease of [place] coronary artery without angina pectoris Atrial fibrillation Back pain, chronic Bilateral carotid artery dissection CAD (coronary artery disease) Essential (primary) hypertension Gait disorder Gastro-esophageal reflux disease without esophagitis Numbness of both lower extremities Pure hypercholesterolemia PVD (peripheral vascular disease) Type 2 diabetes mellitus without complications Surgical History Surgical History (Updated 04/26/22 @ 13:00 by David Randolph DO) History of coronary artery stent placement S/P CABG (coronary artery bypass graft) x4 vessel, 07/2016 Family History Family History Father Cerebrovascular accident Mother Family history of lung cancer, Onset Age: 64 Patient's mother is Other Family history of cardiovascular disease Hypertension Social History Social History (Updated 04/09/22 @ 11:06 by Parul
--- NOTE | 2022-06-01 07:55 | PM.HPGS ---
History of Present Illness History of Present Illness Consent: Risks, benefits, and alternatives have been discussed and questions answered. Patient agrees to proceed with procedure. Chief complaint: neoplasm screening Narrative: Blas Pickett is a 77 year old male Presents for colonoscopy. Patient recently found to have iron deficiency anemia. Recent EGD was unremarkable. Patient presents today for colonoscopy to assess for possible lower GI sources contributing to anemia. Patient has a history of atherosclerotic heart disease. He has a history of heart stenting. He remains on Xarelto and Plavix. These are on hold for colonoscopy. Patient denies any obvious blood in his stools. Weight appetite and bowel movements are normal. Review of Systems Review of Systems: Review of systems noncontributory. [facility] Past Medical History Medical History (Updated 04/27/22 @ 08:47 by Gavin Enciso MD) Atherosclerotic heart disease of [place] coronary artery without angina pectoris Atrial fibrillation Back pain, chronic Bilateral carotid artery dissection CAD (coronary artery disease) Essential (primary) hypertension Gait disorder Gastro-esophageal reflux disease without esophagitis Numbness of both lower extremities Pure hypercholesterolemia PVD (peripheral vascular disease) Type 2 diabetes mellitus without complications Surgical History Surgical History (Updated 04/26/22 @ 13:00 by David Randolph DO) History of coronary artery stent placement S/P CABG (coronary artery bypass graft) x4 vessel, 07/2016 Family History Family History Father Cerebrovascular accident Mother Family history of lung cancer, Onset Age: 64 Patient's mother is Other Family history of cardiovascular disease Hypertension Social History Social History (Updated 04/09/22 @ 11:06 by Parul Hernandez MA) Smoking packs per day: 2 Smoking cigarettes per day: 40.0 Years smoked: 31 Smoking pack-years: 62.00 Smoking status: Former smoker Tobacco type: cigarettes Second hand tobacco smoke exposure: No Smoking end date: 03/25/94 Alcohol intake: current Drinks per week: 14 Alcohol use details: [employer]KE OR STRAIGHT Substance use: current Substance use type: marijuana Other substance usage details: GUMMIDWAYNE OCC. Lack of Transportation: No Lack of Food: Never True Current Housing: I Have Housing Concerned About Future Housing: No Difficulty Paying Gas/Electric Bills: No Difficulty Paying for Meds: No Currently Unemployed: No Education: Trade/Vocational Certificate Difficulty w/ Childcare or Family Care: No Living arrangements: with family Gender identity (if verbalized by the patient): Male Sexual Orientation (if Verbalized by the Patient): Straight or Heterosexual Spiritual care concerns: No Meds Home Medications and Allergies Home Medications Medication Instructions Recorded Confirmed Type blood sugar diagnostic #10 ea 03/05/19 06/01/22 History lancets #50 ea 03/05/19 06/01/22 History lisinopril 30 mg tablet 30 mg PO DAILY 03/05/19 06/01/22 History metoprolol tartrate 50 mg tablet 50 mg PO Q12H 03/05/19 06/01/22 History multivitamin (Multiple Vitamins 1 tablet PO DAILY 03/05/19 06/01/22 History tablet) amlodipine 5 mg tablet 5 mg PO DAILY 03/10/19 06/01/22 History rivaroxaban 20 mg tablet (Xarelto) 20 mg PO DAILY 07/16/19 06/01/22 History hydrochlorothiazide 25 mg tablet 25 mg PO DAILY 07/31/19 06/01/22 History rosuvastatin 20 mg tablet 20 mg PO DAILY 07/31/19 06/01/22 History amiodarone 200 mg tablet 200 mg PO DAILY 03/11/20 06/01/22 History clopidogrel 75 mg tablet (Plavix) 75 mg PO DAILY 09/06/20 06/01/22 History glimepiride 4 mg tablet (Amaryl) 4 mg PO QAM #90 tabs 09/12/21 06/01/22 Rx tramadol 50 mg tablet 50 mg PO Q6H PRN Pain 09/19/21 06/01/22 History epinephrine 0.3 mg/0.3 mL 0.3 mg
[2022-06-01 08:23] VITALS: BP 114/75; PULSE 81; RESP 18; O2SAT 98
[2022-06-01 08:33] VITALS: BP 128/87; PULSE 77; RESP 20; O2SAT 97
[2022-06-01 08:43] VITALS: BP 137/86; PULSE 76; RESP 20; O2SAT 97
== END 2022-06-01 08:50 | disposition home or self-care (01) ==
PROVIDERS: PCP Internal Medicine; Visit Provider Internal Medicine Gastroenterology
PROC: 0DJD8ZZ Inspection of Lower Intestinal Tract, Via Natural or Artificial Opening Endoscopic (ICD-10-PCS; CPT 45378; principal; 2022-06-01 08:00)
DX: D50.9 Iron deficiency anemia, unspecified (principal); K63.9 Disease of intestine, unspecified; K57.30 Diverticulosis of large intestine without perforation or abscess without bleeding; I25.10 Atherosclerotic heart disease of native coronary artery without angina pectoris; I48.20 Chronic atrial fibrillation, unspecified; I10 Essential (primary) hypertension; K21.9 Gastro-esophageal reflux disease without esophagitis; K64.8 Other hemorrhoids; E78.00 Pure hypercholesterolemia, unspecified; E11.51 Type 2 diabetes mellitus with diabetic peripheral angiopathy without gangrene; G89.29 Other chronic pain; M54.9 Dorsalgia, unspecified; Z95.5 Presence of coronary angioplasty implant and graft; Z79.01 Long term (current) use of anticoagulants; Z95.1 Presence of aortocoronary bypass graft; Z87.891 Personal history of nicotine dependence
CPT/HCPCS: 45385; 82948; 88305; J2704; J7120

== ENCOUNTER 2022-06-25 08:15 | Outpatient (CLI) | payer MEDICARE, BC, SELFPAY ==
--- NOTE | ~2022-06-25 | US_ITS ---
EXAMINATION: US art doppler w press LE BI DATE: 06/25/2022 09:10 INDICATION: Peripheral arterial occlusive disease post peripheral artery angioplasty. TECHNIQUE: Segmental pressures and plethysmographic and Doppler waveforms of the brachial and lower e xtremity arteries were obtained. COMPARISON: None. FINDINGS: Right and left brachial artery pressures of 172 mm Hg and 163 mm Hg, respectively, are concordant (no rmal difference <= 30 mmHg). The right and left high-thigh pressure indices are unable to be obtained due to inability to occlude the vessels (normal > 1.2). The right ankle-brachial index (CRISTOPHER) is 0.77 (normal >= 0.9-1). The right great toe-brachial index (T BI) is 0.69 (normal >= 0.6-0.8). The right lower extremity segmental pressure gradients are increased between the right exzlz-ohs-lblu popliteal artery and the right dorsalis pedis and posterior tibial arteries at the right ankle (normal gradients <= 20-30 mmHg between adjacent levels on the same leg o r the same levels on the two legs). Arterial waveforms are biphasic with brisk systolic upstrokes thr oughout the arteries of the right lower limb. The left CRISTOPHER is 0.83. The left TBI is 0.48. The left lower extremity segmental pressure gradients are increased between the left jfdic-uzr-tjah popliteal artery and the left dorsalis pedis and posterior tibial arteries at the left ankle. Arterial waveforms are biphasic with brisk systolic upstrokes thr oughout the arteries of the left lower limb. IMPRESSION: 1. Arterial occlusive disease to bilateral lower limbs with mildly decreased bilateral ABIs and left TBI. Reviewed, dictated and finalized at location A. IMPRESSION: 1. Arterial occlusive disease to bilateral lower limbs with mildly decreased bi lateral ABIs and left TBI.
== END 2022-06-25 08:16 | disposition home or self-care (01) ==
PROVIDERS: PCP Internal Medicine; Visit Provider Internal Medicine Cardiovascular Disease
DX: I73.9 Peripheral vascular disease, unspecified (principal); Z98.62 Peripheral vascular angioplasty status
CPT/HCPCS: 93923

== ENCOUNTER 2023-06-24 08:29 | Outpatient (CLI) | payer MEDICARE, BC, SELFPAY ==
--- NOTE | ~2023-06-24 | US_ITS ---
EXAMINATION: US arterial ankle brachial ind DATE: 06/24/2023 09:23 INDICATION: Peripheral vascular disease. TECHNIQUE: Segmental pressures and plethysmographic and Doppler waveforms of the brachial and lower e xtremity arteries were obtained. COMPARISON: Arterial Doppler and segmental pressures 06/25/2022 FINDINGS: Right and left brachial artery pressures of 137 mm Hg and 140 mm Hg, respectively, are concordant (no rmal difference <= 30 mmHg). The right ankle-brachial index (CRISTOPHER) is 0.89 (normal >= 0.9-1.0). The right great toe-brachial index (TBI) is 0.34 (normal >= 0.65). Arterial Doppler waveforms are biphasic in posterior tibial artery an d biphasic in dorsalis pedis. The left CRISTOPHER is 1.06. The left TBI is 0.39. Arterial Doppler waveforms are monophasic in posterior ti bial artery and biphasic in dorsalis pedis. IMPRESSION: 1. Moderately decreased right CRISTOPHER, normal left CRISTOPHER, decreased TBIs with improvement from 06/25/2022, co nsistent with arterial occlusive disease. Reviewed, dictated and finalized at location A. IMPRESSION: 1. Moderately decreased right CRISTOPHER, normal left CRISTOPHER, decreased TBIs with improve ment from 06/25/2022, consistent with arterial occlusive disease.
== END 2023-06-24 08:30 | disposition home or self-care (01) ==
PROVIDERS: PCP Internal Medicine; Visit Provider Internal Medicine Cardiovascular Disease
DX: I73.9 Peripheral vascular disease, unspecified (principal); Z98.62 Peripheral vascular angioplasty status
CPT/HCPCS: 93922

== ENCOUNTER 2023-11-15 08:11 | Outpatient (CLI) | payer MEDICARE, BC, SELFPAY ==
--- NOTE | ~2023-11-15 | CT_ITS ---
EXAMINATION: CT brain wo/w con DATE: 11/15/2023 08:58 INDICATION: Amnesia TECHNIQUE: Computed tomography (CT) of the head was performed without and with 100 mL Omnipaque-350 i ntravenous contrast. Sagittal and coronal reconstructions were performed. The mA was adjusted accordi ng to patient size. Iterative reconstruction technique was employed. The dose-length product was 1349 .03 mGy-cm. COMPARISON: head CT dated 03/08/2016 FINDINGS: There is extensive white matter T2 hyperintensity. This is however slightly more prominent and with a ssociated mass effect in the left cerebral hemisphere where there is thickening of the gyri with effa cement of the sulci, asymmetric distortion and decreased size of the left lateral ventricle as well a s 6 mm [id number] midline shift at the ventricular septum. There is however preservation of the mo re prominent [place]-white matter distinction consistent with vasogenic edema surrounding a 5.2 x 3.6 x 4.2 cm peripherally enhancing mass in the left parieto-occipital region which is concerning for [place]. There are couple additional enhancing masses in the posterior fossa at the entrance is to the bilateral internal auditory canals which measures 14 x 12 mm on the right and 16 x 12 mm on the left. No acute intracranial hemorrhage or abnormal extra axial fluid collection. Changes of bilateral intr aocular lens replacement. The orbits, paranasal sinuses and mastoid air cells are normal. Changes of bilateral intraocular lens replacement. IMPRESSION: 1. 5.2 x 3.6 x 4.2 cm peripherally enhancing left parieto-occipital mass with prominent this projecti ng in the left sternal hemisphere resulting 6 mm [id number] midline shift. 2. A couple additional enhancing masses at the entrance is to the bilateral internal auditory canals which can be seen with metastatic disease however also suggests possibility of acoustic neuromas or m eningiomas in the setting of neurofibromatosis. 3. Superimposed more extensive diffuse white matter hypoattenuation consistent with chronic small ves billy ischemic disease. Reviewed, dictated and finalized at location A. IMPRESSION: 1. 5.2 x 3.6 x 4.2 cm peripherally enhancing left parieto-occipital mass with p rominent this projecting in the left sternal hemisphere resulting 6 mm left-to- right midline shift. 2. A couple additional enhancing masses at the entrance is to the bilateral int ernal auditory canals which can be seen with metastatic disease however also staton ggests possibility of acoustic neuromas or meningiomas in the setting of neurof ibromatosis. 3. Superimposed more extensive diffuse white matter hypoattenuation consistent with chronic small vessel ischemic disease.
[2023-11-15 08:40] LABS: Estimated Glomerular Filt Rate 35
== END 2023-11-15 08:12 ==
LOC: MICIMG 08:12
PROVIDERS: PCP Internal Medicine; Visit Provider Internal Medicine
DX: R41.3 Other amnesia (principal)
CPT/HCPCS: 70470; Q9967

== ENCOUNTER 2023-11-28 14:32 | Outpatient (CLI) | payer MEDICARE, BC, SELFPAY ==
--- NOTE | ~2023-11-28 | CT_ITS ---
EXAMINATION: CT chest abdomen pelvis w con DATE: 11/28/2023 15:18 INDICATION: Glioma. TECHNIQUE: Computed tomography (CT) of the chest, abdomen, and pelvis was performed with 100 mL Omnip aque 350 intravenous contrast. Automated exposure control and iterative reconstruction technique were employed. The dose-length product was 1067.18 mGy-cm. COMPARISON: None FINDINGS: CHEST CT: There is mild emphysema. The lungs demonstrate mild atelectasis. No pleural effusion. Cardiomegaly is noted. There are coronary artery calcifications. There are changes of coronary artery bypass graftin g. No pericardial effusion. There is a 4 mm nodule in right thyroid lobe, likely not clinically signi ficant. Aortic atherosclerosis is noted. There is moderate thoracic spondylosis. There is mild chroni c anterior wedging of multiple vertebral bodies. ABDOMEN/PELVIS CT: The liver is normal. There is a gallstone in the gallbladder, which is normal in size. Calcifications in the spleen are consistent with old granulomatous disease. The pancreas and adrenal glands are nor mal. There are cysts in the kidneys measuring up to 3.5 cm on the left. There is a 6.0 x 4.3 cm mass in the peritoneum abutting small bowel. There are no dilated loops of bowel. The appendix is normal. There are no pathologically enlarged lymph nodes. There is no free intraperitoneal fluid. There is mo derate lumbar spondylosis. IMPRESSION: 1. 6.0 cm mass in the peritoneum abutting small bowel. The differential diagnosis includes gastrointe stinal stromal tumor and metastatic disease. CT-guided biopsy is recommended. Reviewed, dictated and finalized at location A. IMPRESSION: 1. 6.0 cm mass in the peritoneum abutting small bowel. The differential diagnos is includes gastrointestinal stromal tumor and metastatic disease. CT-guided bi opsy is recommended.
== END 2023-11-28 14:33 | disposition home or self-care (01) ==
PROVIDERS: PCP Internal Medicine; Visit Provider Family Medicine
DX: C71.9 Malignant neoplasm of brain, unspecified (principal)
CPT/HCPCS: 71260; 74177; Q9967

== ENCOUNTER 2023-12-17 14:13 | Outpatient (CLI) | payer MEDICARE, BC, SELFPAY ==
--- NOTE | ~2023-12-17 | CT_ITS ---
EXAMINATION: CT brain w con DATE: 12/17/2023 14:49 INDICATION: Glioma. TECHNIQUE: Computed tomography (CT) of the head was performed with 100 mL Omnipaque 350 intravenous c ontrast. The mA was adjusted according to patient size. Iterative reconstruction technique was employ ed. The dose-length product was 674.51 mGy-cm. COMPARISON: Head CT 11/15/2023, 03/08/2016 FINDINGS: In the left parietal-occipital region, there is a 5.3 x 3.5 x 4.2 cm peripherally enhancing mass. There is a 14 x 15 mm enhancing mass in right cerebellopontine angle. There is a 15 x 12 mm en hancing mass in left cerebellopontine angle. There is no acute ischemic infarct or intracranial hemor rhage. There are scattered areas of low attenuation in the cerebral white matter. The ventricles are normal in size. There are likely changes of ocular lens replacement surgeries. The paranasal sinuses are clear. The mastoid air cells are normal. IMPRESSION: 1. Stable 5.3 cm mass in left parietal occipital region. The differential diagnosis includes glioblas chanell, metastatic disease, and meningioma. 2. Stable masses in the bilateral cerebellopontine angles. The differential diagnosis includes vestib ular schwannomas (neurofibromatosis type 2) and metastatic disease. 3. Stable extensive nonspecific cerebral white matter disease, which likely represents chronic small vessel ischemic disease. Reviewed, dictated and finalized at location A. IMPRESSION: 1. Stable 5.3 cm mass in left parietal occipital region. The differential diagn osis includes glioblastoma, metastatic disease, and meningioma. 2. Stable masses in the bilateral cerebellopontine angles. The differential sandra gnosis includes vestibular schwannomas (neurofibromatosis type 2) and metastati c disease. 3. Stable extensive nonspecific cerebral white matter disease, which likely rep resents chronic small vessel ischemic disease.
[2023-12-17 14:35] LABS: Estimated Glomerular Filt Rate 59
== END 2023-12-17 14:14 | disposition home or self-care (01) ==
LOC: MICIMG 14:14
DX: C71.9 Malignant neoplasm of brain, unspecified (principal); R90.82 White matter disease, unspecified
CPT/HCPCS: 70460; Q9967

== ENCOUNTER 2023-12-22 22:28 | Emergency (ER) | payer MEDICARE, BC, SELFPAY ==
--- NOTE | ~2023-12-22 | CT_ITS ---
CT of the Abdomen and Pelvis: Indication: Hematuria Technique: 2.5 mm axial scans were obtained through the abdomen and pelvis following intravenous adm inistration of 100 cc of Omnipaque 350. Dose reduction technique was used on this scan by utilizing a utomated exposure control and iterative reconstruction technique. The dose-length product (DLP) was 6 45.59 mGy-cm. COMPARISON: 11/28/2023 Findings: Scans through the lung bases are unremarkable. The liver, spleen, pancreas, adrenals and kidneys are within normal limits. Probable small gallstone. There are atherosclerotic calcifications of the aorta. No lymphadenopathy. No bowel obstruction or bowel wall thickening. There is no evidence to suggest acute appendicitis. Images through the pelvis were performed. Probable mild diffuse urinary bladder wall thickening. No p elvic mass seen. No ascites. Impression: Suspected cystitis. Correlate clinically and with urinalysis. No distinct cause for hematuria seen ot herwise. Small gallstone versus possibly gallbladder wall polyp. Reviewed, dictated and finalized at location . Impression: Suspected cystitis. Correlate clinically and with urinalysis. No distinct cause for hematuria seen otherwise. Small gallstone versus possibly gallbladder wall polyp.
[2023-12-22 22:39] VITALS: BP 149/76; PULSE 76; RESP 18; TEMP 36.4; O2SAT 98
[2023-12-22 23:21] LABS: Add Urine Microscopic? YES; Appearance Urine Turbid (Clear); Bacteria Urine 4+ /hpf; Bilirubin Urine 1+ (Negative); Blood Urine 3+ (Negative); Glucose Urine UA Trace mg/dL (Negative); Ketones Urine Negative (Negative); Leukocyte Esterase Ur 3+ LEU/UL (Negative); Need Manual Microscopic Reviewed; Nitrate Urine Negative (Negative); Non Pathogenic Casts 0-2; Protein Urine 4+ mg/dL (Negative); RBC Urine >100 /hpf (0-2); Specific Grav Ur 1.022 (1.001-1.035); Squamous Epithelial Cell Urine Few /hpf (Few); WBC Urine >100 /hpf (0-3); pH Urine 6.5 (5.0-9.0)
[2023-12-22 23:25] LABS: Color Urine Dark Red (Yellow)
[2023-12-23] VITALS (10 sets, daily range): BP systolic 123–140; BP diastolic 67–93; PULSE 64–103; RESP 16–24; TEMP 36.6; O2SAT 92–99
[2023-12-23 02:35] LABS: Basophils Percent Auto 0.1 % (0.2-1.2); Eosinophils Percent Auto 0.4 % (0-4.4); Hematocrit 31.8 % (42.0-52.0); Hemoglobin 10.6 g/dL (14.0-18.0); Immature Granulocyte Absolute 0.33 K/mm3 (0.00-0.031); Immature Granulocyte Percent A 3.1 % (0-0.5); Lymphocytes Absolute Auto 1.11 K/mm3 (0.9-3.2); Lymphocytes Percent Auto 10.4 % (18.3-44.2); Mean Corpuscular HGB Conc 33.3 g/dl (32-36); Mean Corpuscular Hemoglobin 29.3 pg (26-34); Mean Corpuscular Volume 87.8 fl (80-100); Mean Platelet Volume 10.7 fl (7.4-10.4); Monocytes Absolute Auto 1.1 K/mm3 (0.1-0.6); Neutrophils Absolute Auto 8.1 K/mm3 (1.3-6.7); Platelet Count Result 111 k/mm3 (150-375); Red Blood Count 3.62 M/mm3 (4.6-6.20); Red Cell Distribution Width 13.9 % (11.5-14.5); White Blood Count 10.7 K/mm3 (4.5-10.0)
[2023-12-23 02:44] LABS: Alanine Aminotransferase 19 U/L (6-50); Alkaline Phosphatase 64 U/L (38-126); Anion Gap 10 mmol/L (4-12); Aspartate Amino Transferase 22 U/L (17-59); Bilirubin,Total 0.5 mg/dL (0.2-1.3); Blood Urea Nitrogen 25 mg/dL (9-20); Calcium 9.2 mg/dL (8.4-10.2); Carbon Dioxide 27 mmol/L (22-30); Chloride 97 mmol/L (98-107); Estimated CRCL calculation 72 ml/min; Estimated Glomerular Filt Rate > 60; Glucose 273 mg/dL (65-110); Magnesium 1.5 mg/dL (1.6-2.3); Potassium 3.6 mmol/L (3.4-5.0); Sodium 134 mmol/L (137-145)
[2023-12-23 02:53] LABS: INR 1.1; Prothrombin Time 15.2 Seconds (11.1-14.7)
[2023-12-23 02:54] LABS: Partial Thromboplastin Time 21.2 Seconds (22.3-36.8)
--- NOTE | 2023-12-23 03:06 | ED.MALEGU ---
HPI - Male Genitourinary General Chief complaint: Urogenital-Male Stated complaint: peeing a lot of blood Time Seen by Provider: 12/23/23 01:50 History of Present Illness HPI Narrative: 78-year-old male with a past medical history significant for recently diagnosed metastatic cancer. He has lesions in his brain and abdomen. He also has a history of a TURP in the remote past 5 year. Presenting to the emergency department today with chief complaint of burning with urination and passing of flecks of blood in his urine associated with mild clot formation. He states he has been having symptoms for last day that initially started with urinary frequency and going to the restroom frequently. He recently stopped taking his Xarelto and Plavix given that he was scheduled for outpatient biopsies of his metastatic cancer lesions this Saturday. No trauma recent injuries otherwise. Denies any headache, vision change, chest pain, shortness a breath, abdominal pain, back pain, fever, chills. No history of UTIs or any recent instrumentation. Review of the EMR shows that he has multiple brain lesions and a single lesion in his abdomen that abuts the bowel. Related Data Home Medications Medication Instructions Recorded Confirmed blood sugar diagnostic #10 ea 03/05/19 11/04/23 lancets #50 ea 03/05/19 11/04/23 lisinopril 30 mg tablet 30 mg PO DAILY 03/05/19 11/04/23 metoprolol tartrate 50 mg tablet 50 mg PO Q12H 03/05/19 11/04/23 multivitamin (Multiple Vitamins 1 tablet PO DAILY 03/05/19 11/04/23 tablet) amlodipine 5 mg tablet 5 mg PO DAILY 03/10/19 11/04/23 rivaroxaban 20 mg tablet (Xarelto) 20 mg PO DAILY 07/16/19 11/04/23 hydrochlorothiazide 25 mg tablet 25 mg PO DAILY 07/31/19 11/04/23 rosuvastatin 20 mg tablet 20 mg PO DAILY 07/31/19 11/04/23 clopidogrel 75 mg tablet (Plavix) 75 mg PO DAILY 09/06/20 11/04/23 tramadol 50 mg tablet 50 mg PO Q6H PRN Pain 09/19/21 11/04/23 azelastine 137 mcg (0.1 %) nasal 2 spray intranasal Q12H PRN 04/17/22 11/04/23 spray Allergy Symptoms Allergies Allergy/AdvReac Type Severity Reaction Status Date / Time diltiazem Allergy Intermediate hives Verified 11/04/23 13:56 Review of Systems Review of Systems: As reviewed above in HPI [facility] Past Medical History Medical History Atherosclerotic heart disease of [place] coronary artery without angina pectoris Atrial fibrillation Back pain, chronic Bilateral carotid artery dissection CAD (coronary artery disease) Essential (primary) hypertension Gait disorder Gastro-esophageal reflux disease without esophagitis Numbness of both lower extremities Pure hypercholesterolemia PVD (peripheral vascular disease) Type 2 diabetes mellitus without complications Surgical History Surgical History History of coronary artery stent placement S/P CABG (coronary artery bypass graft) x4 vessel, 07/2016 Family History Family History Father Cerebrovascular accident Mother Family history of lung cancer, Onset Age: 64 Patient's mother is Other Family history of cardiovascular disease Hypertension Social History Social History Smoking packs per day: 2 Smoking cigarettes per day: 40.0 Years smoked: 31 Smoking pack-years: 62.00 Smoking status: Former smoker Tobacco type: cigarettes Second hand tobacco smoke exposure: No Smoking end date: 03/25/94 Alcohol intake: current Drinks per week: 14 Alcohol use details: BOUR[employer] COKE OR STRAIGHT Substance use: current Substance use type: marijuana Other substance usage details: GUMMIES OCC. Lack of Transportation: No Lack of Food: Never True Current Housing: I Have Housing Concerned About Future Housing: No Difficulty P
--- NOTE | 2023-12-23 03:13 | PC.NURSE ---
Assumed care of patient at this time.
[2023-12-23] MEDS: cefTRIAXone 2 GM/NS 100 ML 2 GM/100 ML BAG IVPB (03:18)
--- NOTE | 2023-12-23 03:32 | PC.NURSE ---
Patient taken to CT via stretcher at this time.
[2023-12-23] MEDS: SULFAMETHOXAZOLE/TRIMETHOPRIM 800/160 MG DS TABLET 1 TAB PO (04:37)
== END 2023-12-23 04:44 | disposition home or self-care (01) ==
PROVIDERS: Emergency Provider Student in an Organized Health Care Education/Training Program
DX: N39.0 Urinary tract infection, site not specified (principal); C79.31 Secondary malignant neoplasm of brain; C79.89 Secondary malignant neoplasm of other specified sites; I25.10 Atherosclerotic heart disease of native coronary artery without angina pectoris; I48.91 Unspecified atrial fibrillation; I10 Essential (primary) hypertension; E11.51 Type 2 diabetes mellitus with diabetic peripheral angiopathy without gangrene; I73.9 Peripheral vascular disease, unspecified; E78.00 Pure hypercholesterolemia, unspecified; K21.9 Gastro-esophageal reflux disease without esophagitis; Z95.1 Presence of aortocoronary bypass graft; Z95.5 Presence of coronary angioplasty implant and graft; Z87.891 Personal history of nicotine dependence; Z79.01 Long term (current) use of anticoagulants; Z79.02 Long term (current) use of antithrombotics/antiplatelets; R93.2 Abnormal findings on diagnostic imaging of liver and biliary tract
CPT/HCPCS: 36415; 74177; 80053; 81001; 83735; 85025; 85610; 85730; 86850; 86900; 86901; 87077; 87086; 87088; 87186; 96365; 99284; A9270; J0696; Q9967

== ENCOUNTER 2024-01-11 08:46 | Emergency (ER) | payer MEDICARE, BC, SELFPAY ==
[2024-01-11 08:50] VITALS: BP 119/58; PULSE 139; RESP 16; TEMP 36.4; O2SAT 100
[2024-01-11 09:03] VITALS: BP 129/94; PULSE 95; RESP 18; O2SAT 97
--- NOTE | 2024-01-11 09:19 | ED.GENADULT ---
HPI - General Adult General Chief complaint: Urogenital-Male Stated complaint: UTI, bleeding Time Seen by Provider: 01/11/24 08:52 History of Present Illness HPI narrative: 78-year-old male presents to the emergency department for evaluation for hematuria. Patient is still taking Plavix and Xarelto. Patient is currently being worked up for suspected cancer with metastasis to brain and intestine. Patient was diagnosed with a urinary tract infection approximately 2 weeks ago. Patient states that this morning he began having worsening hematuria. Patient denies any difficulty urinating. Related Data Home Medications Medication Instructions Recorded Confirmed blood sugar diagnostic #10 ea 03/05/19 11/04/23 lancets #50 ea 03/05/19 11/04/23 lisinopril 30 mg tablet 30 mg PO DAILY 03/05/19 11/04/23 metoprolol tartrate 50 mg tablet 50 mg PO Q12H 03/05/19 11/04/23 multivitamin (Multiple Vitamins 1 tablet PO DAILY 03/05/19 11/04/23 tablet) amlodipine 5 mg tablet 5 mg PO DAILY 03/10/19 11/04/23 rivaroxaban 20 mg tablet (Xarelto) 20 mg PO DAILY 07/16/19 11/04/23 hydrochlorothiazide 25 mg tablet 25 mg PO DAILY 07/31/19 11/04/23 rosuvastatin 20 mg tablet 20 mg PO DAILY 07/31/19 11/04/23 clopidogrel 75 mg tablet (Plavix) 75 mg PO DAILY 09/06/20 11/04/23 tramadol 50 mg tablet 50 mg PO Q6H PRN Pain 09/19/21 11/04/23 azelastine 137 mcg (0.1 %) nasal 2 spray intranasal Q12H PRN 04/17/22 11/04/23 spray Allergy Symptoms Allergies Allergy/AdvReac Type Severity Reaction Status Date / Time diltiazem Allergy Intermediate hives Verified 11/04/23 13:56 Review of Systems Review of Systems: All systems reviewed & are unremarkable except as noted in HPI and below PMFSH Past Medical History Medical History Atherosclerotic heart disease of [place] coronary artery without angina pectoris Atrial fibrillation Back pain, chronic Bilateral carotid artery dissection CAD (coronary artery disease) Essential (primary) hypertension Gait disorder Gastro-esophageal reflux disease without esophagitis Numbness of both lower extremities Pure hypercholesterolemia PVD (peripheral vascular disease) Type 2 diabetes mellitus without complications Surgical History Surgical History History of coronary artery stent placement S/P CABG (coronary artery bypass graft) x4 vessel, 07/2016 Family History Family History Father Cerebrovascular accident Mother Family history of lung cancer, Onset Age: 64 Patient's mother is Other Family history of cardiovascular disease Hypertension Social History Social History Smoking packs per day: 2 Smoking cigarettes per day: 40.0 Years smoked: 31 Smoking pack-years: 62.00 Smoking status: Former smoker Tobacco type: cigarettes Second hand tobacco smoke exposure: No Smoking end date: 03/25/94 Alcohol intake: current Drinks per week: 14 Alcohol use details: BOUR[employer] COKE OR STRAIGHT Substance use: current Substance use type: marijuana Other substance usage details: GUMMIES OCC. Lack of Transportation: No Lack of Food: Never True Current Housing: I Have Housing Concerned About Future Housing: No Difficulty Paying Gas/Electric Bills: No Difficulty Paying for Meds: No Currently Unemployed: No Education: Trade/Vocational Certificate Difficulty w/ Childcare or Family Care: No Living arrangements: with family Gender identity (if verbalized by the patient): Male Sexual Orientation (if Verbalized by the Patient): Straight or Heterosexual Spiritual care concerns: No Exam Narrative: APPEARANCE: Well appearing, no pain, no distress, well-nourished. HEAD: normocephalic, atraumatic. EYES: PERRLA/EOMI, co
[2024-01-11 09:26] LABS: Hematocrit 34.8 % (42.0-52.0); Hemoglobin 11.7 g/dL (14.0-18.0); Mean Corpuscular HGB Conc 33.6 g/dl (32-36); Mean Corpuscular Hemoglobin 29.9 pg (26-34); Mean Platelet Volume 10.4 fl (7.4-10.4); Platelet Count Result 159 k/mm3 (150-375); Red Blood Count 3.91 M/mm3 (4.6-6.20); Red Cell Distribution Width 15.1 % (11.5-14.5); White Blood Count 9.7 K/mm3 (4.5-10.0)
[2024-01-11 09:40] LABS: INR 1.8
[2024-01-11 09:41] LABS: Partial Thromboplastin Time 23.1 Seconds (22.3-36.8)
[2024-01-11 09:42] LABS: Appearance Urine Cloudy (Clear); Color Urine Red (Yellow)
[2024-01-11 09:43] LABS: Add Urine Microscopic? YES
[2024-01-11 09:43] LABS: Alanine Aminotransferase 31 U/L (6-50); Albumin Level 4.6 g/dL (3.5-5.1); Alkaline Phosphatase 52 U/L (38-126); Anion Gap 9 mmol/L (4-12); Aspartate Amino Transferase 32 U/L (17-59); Bilirubin,Total 0.8 mg/dL (0.2-1.3); Blood Urea Nitrogen 34 mg/dL (9-20); Calcium 10.1 mg/dL (8.4-10.2); Carbon Dioxide 32 mmol/L (22-30); Chloride 99 mmol/L (98-107); Estimated CRCL calculation 58 ml/min; Estimated Glomerular Filt Rate > 60; Glucose 213 mg/dL (65-110); Potassium 3.1 mmol/L (3.4-5.0); Sodium 140 mmol/L (137-145)
[2024-01-11 09:44] LABS: RBC Urine >100 /hpf (0-2); WBC Urine 51-100 /hpf (0-3)
[2024-01-11 09:45] LABS: Bacteria Urine 2+ /hpf; Squamous Epithelial Cell Urine Few /hpf (Few)
[2024-01-11 09:51] LABS: Band Neutrophils Percent 3 % (0-6); Lymphocytes Absolute Manual 1.64 K/mm3 (1.1-4.5); Monocytes Absolute Manual 0.77 K/mm3 (0.1-0.90); Monocytes Percent Manual 8 % (3-9); Neutrophils Absolute Manual 7.27 K/mm3 (1.3-6.7); Neutrophils Percent Manual 72 % (46-73); Total Cells Counted 100
[2024-01-11 09:52] LABS: Platelet Estimate Adequate (Adequate); Schistocytes None Seen
[2024-01-11 09:53] LABS: Hypochromasia 1+
[2024-01-11 10:01] VITALS: BP 122/66; PULSE 74; RESP 17; O2SAT 98
[2024-01-11 11:40] VITALS: BP 146/86; PULSE 81; RESP 18; O2SAT 98
[2024-01-11 12:36] VITALS: BP 131/94; PULSE 92; RESP 18; O2SAT 100
[2024-01-11 13:26] VITALS: BP 128/68; PULSE 76; RESP 16; TEMP 36.6; O2SAT 98
== END 2024-01-11 13:26 | disposition home or self-care (01) ==
PROVIDERS: Emergency Provider Emergency Medicine; PCP Internal Medicine
DX: N39.0 Urinary tract infection, site not specified (principal); R31.9 Hematuria, unspecified; I25.10 Atherosclerotic heart disease of native coronary artery without angina pectoris; I48.91 Unspecified atrial fibrillation; I10 Essential (primary) hypertension; E11.51 Type 2 diabetes mellitus with diabetic peripheral angiopathy without gangrene; I73.9 Peripheral vascular disease, unspecified; E78.00 Pure hypercholesterolemia, unspecified; K21.9 Gastro-esophageal reflux disease without esophagitis; Z95.5 Presence of coronary angioplasty implant and graft; Z95.1 Presence of aortocoronary bypass graft; Z87.891 Personal history of nicotine dependence; Z79.899 Other long term (current) drug therapy; Z79.01 Long term (current) use of anticoagulants; Z79.02 Long term (current) use of antithrombotics/antiplatelets; Z79.84 Long term (current) use of oral hypoglycemic drugs
CPT/HCPCS: 36415; 80053; 81001; 85025; 85610; 85730; 87077; 87086; 87186; 96365; 99284; J0696

== ENCOUNTER 2024-02-05 20:34 | Emergency (ER) | payer MEDICARE, BC, SELFPAY ==
--- NOTE | ~2024-02-05 | CT_ITS ---
History: Weakness and slurred speech after brain biopsy on January 28 PROCEDURE: CT head without contrast. COMPARISON: 12/17/2023 TECHNIQUE: Axial imaging of the head performed from the skull base to the vertex without IV contrast. Sagittal a nd coronal reformations obtained. DLP: 681 mGy-cm FINDINGS: Post operative change is identified within the left parietal-occipital region with foci of air, overl emily craniotomy defect as well as surrounding foci of increased attenuation, representing either bloo d products versus intraoperative placement of hemostatic introducers. Surrounding decreased attenuation consistent with edema, increased from previous examination with mas s effect on the posterior horn of the left lateral ventricle. A 6 mm shift is identified towards the patient's right. Impression: Acute postoperative hemorrhage versus expected perioperative change within the left cerebral hemisphe re, as detailed above. These findings were discussed with Dr. Peralta at the time of examination and interpretation. Reviewed, dictated and finalized at location A. AN Impression: Acute postoperative hemorrhage versus expected perioperative change within the left cerebral hemisphere, as detailed above. These findings were discussed with Dr. Peralta at the time of examination and interpretation.
--- NOTE | ~2024-02-05 | XR_ITS ---
CHEST RADIOGRAPH, PA AND LATERAL CLINICAL HISTORY: weakness . COMPARISON: 05/22/2020 TECHNIQUE: PA and lateral views of the chest. FINDINGS Sternal wires and mediastinal clips are identified, the wires are midline and intact. The remainder of the cardiomediastinal silhouette is enlarged, but otherwise unremarkable. Increased interstitial markings are identified bilaterally, findings suggesting mild pulmonary vascul ar congestion. The lungs are otherwise clear. Visualized osseous structures and soft tissues are unremarkable. IMPRESSION: Mild pulmonary vascular congestion, without focal infiltrate or effusion. Reviewed, dictated and finalized at location A. ITURE FABRICATOR
--- NOTE | 2024-02-05 20:41 | ECG_ITS ---
Test Date: 2024-02-05 20:46:08 Measurements Intervals [place] Rate: 88 P: 0 FL: 0 QRS: 13 QRSD: 105 T: 1 QT: 371 QTc: 449 Interpretive Statements ATRIAL FIBRILLATION CONSIDER INFERIOR INFARCT, AGE INDETERMINATE ABNORMAL ECG No previous ECG available for comparison Electronically Signed On 02-06-2024 05:23:44 [employer]ITAL PROJECT ENGINEER by Arnold Lucero D.O.
[2024-02-05 20:42] VITALS: BP 112/80; PULSE 86; RESP 14; TEMP 36.7; O2SAT 99
[2024-02-05 20:50] VITALS: BP 112/80; PULSE 94; RESP 13; O2SAT 97
[2024-02-05 21:02] LABS: Basophils Percent Auto 0.3 % (0.2-1.2); Hematocrit 25.8 % (42.0-52.0); Hemoglobin 8.7 g/dL (14.0-18.0); Immature Granulocyte Absolute 0.38 K/mm3 (0.00-0.031); Immature Granulocyte Percent A 6.4 % (0-0.5); Lymphocytes Absolute Auto 0.77 K/mm3 (0.9-3.2); Lymphocytes Percent Auto 12.9 % (18.3-44.2); Mean Corpuscular HGB Conc 33.7 g/dl (32-36); Mean Platelet Volume 9.8 fl (7.4-10.4); Monocytes Absolute Auto 0.6 K/mm3 (0.1-0.6); Monocytes Percent Auto 9.7 % (2.6-8.5); Neutrophils Absolute Auto 4.2 K/mm3 (1.3-6.7); Neutrophils Percent Auto 70.7 % (45.5-73.1); Platelet Count Result 145 k/mm3 (150-375); Red Cell Distribution Width 17.1 % (11.5-14.5)
[2024-02-05 21:12] LABS: Alanine Aminotransferase 26 U/L (6-50); Albumin Level 3.9 g/dL (3.5-5.1); Alkaline Phosphatase 35 U/L (38-126); Anion Gap 9 mmol/L (4-12); Aspartate Amino Transferase 32 U/L (17-59); Bilirubin,Total 0.6 mg/dL (0.2-1.3); Blood Urea Nitrogen 25 mg/dL (9-20); Calcium 9.5 mg/dL (8.4-10.2); Carbon Dioxide 24 mmol/L (22-30); Chloride 101 mmol/L (98-107); Estimated CRCL calculation 72 ml/min; Estimated Glomerular Filt Rate > 60; Glucose 198 mg/dL (65-110); Potassium 4.2 mmol/L (3.4-5.0); Sodium 134 mmol/L (137-145)
[2024-02-05 21:23] LABS: Platelet Estimate Slightly Decreased (Adequate); Schistocytes None Seen
[2024-02-05 21:24] LABS: Anisocytosis 2+
--- NOTE | 2024-02-05 22:45 | ED.GENADULT ---
HPI - General Adult General Chief complaint: Recheck/Abnormal Lab/Rx Stated complaint: POST-BIOPSY WEAKNESS, SLURRED SPEECH Time Seen by Provider: 02/05/24 21:06 History of Present Illness HPI narrative: patient is a 78-year-old gentleman presents emergency department with chief complaint of increased weakness and slurred speech since of brain biopsy on the . Patient reports that he has been on Decadron and reports that his blood sugars have been running high patient has had blood thinners held since the surgery the patient's family noticed today he was more confused and having some slurred speech at home the patient is currently able to answer all questions appropriately Related Data Home Medications Medication Instructions Recorded Confirmed blood sugar diagnostic #10 ea 03/05/19 02/03/24 lancets #50 ea 03/05/19 02/03/24 lisinopril 30 mg tablet 30 mg PO DAILY 03/05/19 02/03/24 metoprolol tartrate 50 mg tablet 50 mg PO Q12H 03/05/19 02/03/24 multivitamin (Multiple Vitamins 1 tablet PO DAILY 03/05/19 02/03/24 tablet) amlodipine 5 mg tablet 5 mg PO DAILY 03/10/19 02/03/24 rivaroxaban 20 mg tablet (Xarelto) 20 mg PO DAILY 07/16/19 02/03/24 hydrochlorothiazide 25 mg tablet 25 mg PO DAILY 07/31/19 02/03/24 rosuvastatin 20 mg tablet 20 mg PO DAILY 07/31/19 02/03/24 clopidogrel 75 mg tablet (Plavix) 75 mg PO DAILY 09/06/20 02/03/24 tramadol 50 mg tablet 50 mg PO Q6H PRN Pain 09/19/21 02/03/24 azelastine 137 mcg (0.1 %) nasal 2 spray intranasal Q12H PRN 04/17/22 02/03/24 spray Allergy Symptoms Allergies Allergy/AdvReac Type Severity Reaction Status Date / Time diltiazem Allergy Intermediate hives Verified 02/03/24 13:22 Review of Systems Review of Systems: A 10 system review of systems was completed on the patient and is negative except for what is stated in the HPI. Nursing and ancillary documentation was reviewed. [facility] Past Medical History Medical History Atherosclerotic heart disease of [place] coronary artery without angina pectoris Atrial fibrillation Back pain, chronic Bilateral carotid artery dissection CAD (coronary artery disease) Cervicalgia Elevated LFTs Encounter for screening for malignant neoplasm of colon Essential (primary) hypertension Gait disorder Gastro-esophageal reflux disease without esophagitis Numbness of both lower extremities Other chronic pain Other fatigue Pure hypercholesterolemia PVD (peripheral vascular disease) Type 2 diabetes mellitus without complications Surgical History Surgical History History of coronary artery stent placement S/P CABG (coronary artery bypass graft) x4 vessel, 07/2016 Family History Family History Father Cerebrovascular accident Mother Family history of lung cancer, Onset Age: 64 Sibling No problems noted. Other Family history of cardiovascular disease Hypertension Social History Social History Smoking packs per day: 2 Smoking cigarettes per day: 40.0 Years smoked: 31 Smoking pack-years: 62.00 Smoking status: Former smoker Tobacco type: cigarettes Second hand tobacco smoke exposure: No Smoking end date: 03/25/94 Alcohol intake: current Drinks per week: 14 Alcohol use details: BOUR[employer]KE OR STRAIGHT Substance use: current Substance use type: marijuana Other substance usage details: GUMMIES OCC. Do You Feel Safe in your Home?: Yes Lack of Transportation: No Lack of Food: Never True Current Housing: I Have Housing Concerned About Future Housing: No Difficulty Paying Gas/Electric Bills: No Difficulty Paying for Meds: No Currently Unemployed: No Education: Trade/Vocational Certificate Difficulty w/ Childcare or Family Care: No Living arrangements: with family Occupation/Education: retired Gender identity (if verbalized by the patient): Male Sexual Orientation (if Verbalized by the Patient): Straight or Heterosexual Spiritual care concerns: No Exam Narrative: GENERAL: Well-appearing, well-nourished, and in no acute distress. HEAD: Normocephalic, atraumatic. EYES: PERRLA and EOMI. ENT: Nares clear, no rhinorrhea or epistaxis. Mucous membranes moist. NECK: Supple. CHEST: Clear to auscultation. No respiratory distress. HEART: Regular rate and rhythm. No murmur heard. Normal peripheral pulses. ABDOMEN: Soft, nontender, nondistended, normal active bowel sounds. EXTREMITIES: Normal range of motion. No edema. SKIN: Warm, dry, no rash. NEURO: No focal deficits. Alert and oriented x3. PSYCH: Normal mood and affect. Course Vital Signs Vital signs: Vital Signs Temperature 36.7 C 02/05/24 20:42 Pulse Rate 86 02/05/24 20:42 Respiratory Rate 14 02/05/24 20:42 Blood Pressure 112/80 02/05/24 20:42 Pulse Oximetry 99 02/05/24 20:42 Oxygen Delivery Room Air 02/05/24 20:42 Temperature 36.7 C 02/05/24 20:42 Pulse Rate 94 02/05/24 20:50 Respiratory Rate 13 02/05/24 20:50 Blood Pressure 112/80 02/05/24 20:50 Pulse Oximetry 97 02/05/24 20:50 Oxygen Delivery Room Air 02/05/24 20:42 Medical Decision Making MDM Narrative Medical decision making narrative: differential diagnosis includes postsurgical hemorrhage, postsurgical edema. CT head was obtained on the patient which showed Acute postoperative hemorrhage versus expected perioperative change within the left cerebral hemisphere, as detailed above. the case was discussed with the neurosurgery on-call resident who accepted the patient to the floor at [facility] under Dr. Starr Vital Signs Vital Signs: Vital Signs Temperature 36.7 C 02/05/24 20:42 Pulse Rate 86 02/05/24 20:42 Respiratory Rate 14 02/05/24 20:42 Blood Pressure 112/80 02/05/24 20:42 Pulse Oximetry 99 02/05/24 20:42 Oxygen Delivery Room Air 02/05/24 20:42 Temperature 36.7 C 02/05/24 20:42 Pulse Rate 94 02/05/24 20:50 Respiratory Rate 13 02/05/24 20:50 Blood Pressure 112/80 02/05/24 20:50 Pulse Oximetry 97 02/05/24 20:50 Oxygen Delivery Room Air 02/05/24 20:42 Lab Data 02/05/24 20:55 02/05/24 20:55 Labs: Lab Results 02/05/24 Range/Units 20:55 WBC 6.0 (4.5-10.0) K/mm3 RBC 2.90 L (4.6-6.20) M/mm3 Hgb 8.7 L D (14.0-18.0) g/dL Hct 25.8 L (42.0-52.0) % MCV 89.0 (80-100) fl MCH 30.0 (26-34) pg MCHC 33.7 (32-36) g/dl RDW 17.1 H (11.5-14.5) % Plt Count 145 L (150-375) k/mm3 MPV 9.8 (7.4-10.4) fl Immature Gran % (Auto) 6.4 H (0-0.5) % Neut % (Auto) 70.7 (45.5-73.1) % Lymph % (Auto) 12.9 L (18.3-44.2) % [place] % (Auto) 9.7 H (2.6-8.5) % Eos % (Auto) 0.0 (0-4.4) % Baso % (Auto) 0.3 (0.2-1.2) % Lymph # (Auto) 0.77 L (0.9-3.2) K/mm3 [place] # (Auto) 0.6 (0.1-0.6) K/mm3 Eos # (Auto) 0.0 (0-0.3) K/mm3 Baso # (Auto) 0.0 (0.0-0.1) K/mm3 Abs Immat Gran (auto) 0.38 H (0.00-0.031) K/mm3 Absolute Neuts (auto) 4.2 (1.3-6.7) K/mm3 Absolute Nucleated RBC 0.000 (0.0-0.012) K/mm3 Nucleated RBC % 0.0 (0.0-0.2) % Platelet Estimate Slightly decreased (Adequate) Anisocytosis 2+ Schistocytes None seen Sodium 134 L (137-145) mmol/L Potassium 4.2 (3.4-5.0) mmol/L Chloride 101 (98-107) mmol/L Carbon Dioxide 24 (22-30) mmol/L Anion Gap 9 (4-12) mmol/L BUN 25 H (9-20) mg/dL Creatinine 0.90 (0.7-1.3) mg/dL Estim Creat Clear Calc 72 ml/min Estimated GFR > 60 (59 - ) Glucose 198 H (65-110) mg/dL Calcium 9.5 (8.4-10.2) mg/dL Total Bilirubin 0.6 (0.2-1.3) mg/dL AST 32 (17-59) U/L ALT 26 (6-50) U/L Alkaline Phosphatase 35 L (38-126) U/L Total Protein 7.0 (6.3-8.2) g/dL Albumin 3.9 (3.5-5.1) g/dL Discharge Plan Discharge Clinical Impression: Postoperative hemorrhage Patient Disposition: Acute Care Hospital Condition: Stable Prescriptions: No Action Xarelto 20 mg Tablet 20 mg PO DAILY epinephrine [EpiPen] 0.3 mg/0.3 mL auto-injector 0.3 mg IM ONCE Qty: 1 0RF Rx Instructions: as a single dose; may repeat once multivitamin [Multiple Vitamins] Tablet 1 tablet PO DAILY (DME) blood sugar diagnostic Strip See Rx Instructions .ROUTE .MEDSUPPLY Qty: 10 Rx Instructions: As directed (DME) [place]ancets [facility] [place] Rx Instructions .ROUTE .MEDSUPPLY Qty: 50 Rx Instructions: As directed metoprolol tartrate 50 mg tablet 50 mg PO Q12H lisinopril 30 mg tablet 30 mg PO DAILY amlodipine 5 mg tablet 5 mg PO DAILY rosuvastatin 20 mg tablet 20 mg PO DAILY hydrochlorothiazide 25 mg tablet 25 mg PO DAILY clopidogrel [Plavix] 75 mg tablet 75 mg PO DAILY tramadol 50 mg tablet 50 mg PO Q6H PRN (Reason: Pain) azelastine 137 mcg (0.1 %) aerosol,spray 2 spray NASAL Q12H PRN (Reason: Allergy Symptoms) Rx Instructions: administer into each nostril betamethasone valerate 0.1 % cream 1 applic topical BID PRN (Reason: SKIN REACTION) Qty: 45 0RF nystatin 100,000 unit/gram cream 1 applic TOPICAL BID Qty: 30 1RF Rx Instructions: apply BID metformin 500 mg tablet 500 mg PO TID Qty: 270 3RF ferrous sulfate 325 mg (65 mg iron) tablet 325 mg PO BID Qty: 180 1RF pantoprazole 40 mg tablet,delayed release (DR/EC) 40 mg PO QAM Qty: 90 3RF Follow-up/Referrals: Zion,Stanley L., DO [Primary Care Provider] - Time of Disposition: 22:48
--- NOTE | 2024-02-05 22:49 | PC.NURSE ---
Spoke with Lashawn from [facility] transfer center for triage assessment. She stated she doesnt know if patient will receive a bed tonight but will call back as soon as he does.
[2024-02-05 23:06] VITALS: BP 111/68; PULSE 79; RESP 116; O2SAT 96
--- NOTE | 2024-02-06 00:20 | PC.NURSE ---
Pt placed in hospital bed @0020
[2024-02-06 00:28] LABS: Add Urine Microscopic? YES; Appearance Urine Clear (Clear); Bacteria Urine None Seen /hpf; Bilirubin Urine Negative (Negative); Blood Urine Negative (Negative); Color Urine Yellow (Yellow); Glucose Urine UA Negative (Negative); Ketones Urine Negative (Negative); Leukocyte Esterase Ur Negative LEU/UL (Negative); Nitrate Urine Negative (Negative); Protein Urine Trace mg/dL (Negative); RBC Urine 0-2 /hpf (0-2); Squamous Epithelial Cell Urine None Seen /hpf (Few); Urobilinogen Urine 0.2 mg/dL (<2.0); WBC Urine 0-5 /hpf (0-3)
[2024-02-06 03:30] VITALS: BP 126/83; PULSE 92; RESP 17; O2SAT 100
[2024-02-06 06:20] VITALS: BP 143/87; PULSE 100; RESP 20; O2SAT 100
--- NOTE | 2024-02-06 06:33 | PC.NURSE ---
Spoke with Lashawn from [facility] transfer center whom stated pt received a bed assignment. [facility] main campus : [id number] Starr number to call report :
--- NOTE | 2024-02-06 06:43 | PC.NURSE ---
This RN attempted to give nurse report to [facility] RN and was placed on hold for 16 minutes. This RN will attempt to call report again.
[2024-02-06 07:23] VITALS: BP 143/87; PULSE 92; RESP 20; O2SAT 99
[2024-02-06 07:44] VITALS: TEMP 36.6
[2024-02-06 09:38] VITALS: BP 140/90; PULSE 90; RESP 16; TEMP 36.7; O2SAT 99
== END 2024-02-06 09:41 | disposition short-term general hospital (02) ==
PROVIDERS: Emergency Provider Emergency Medicine; PCP Internal Medicine
DX: G97.51 Postprocedural hemorrhage of a nervous system organ or structure following a nervous system procedure (principal); I25.10 Atherosclerotic heart disease of native coronary artery without angina pectoris; I10 Essential (primary) hypertension; E11.51 Type 2 diabetes mellitus with diabetic peripheral angiopathy without gangrene; I73.9 Peripheral vascular disease, unspecified; E78.00 Pure hypercholesterolemia, unspecified; K21.9 Gastro-esophageal reflux disease without esophagitis; Z87.891 Personal history of nicotine dependence; Z79.02 Long term (current) use of antithrombotics/antiplatelets; Z79.01 Long term (current) use of anticoagulants; Z79.899 Other long term (current) drug therapy; Z79.84 Long term (current) use of oral hypoglycemic drugs; I48.91 Unspecified atrial fibrillation; R94.31 Abnormal electrocardiogram [ECG] [EKG]
CPT/HCPCS: 36415; 70450; 71046; 80053; 81001; 85025; 93005; 99285

== ENCOUNTER 2024-04-06 07:12 | Emergency (ER) | payer MEDICARE, BC, SELFPAY ==
[2024-04-06] VITALS (10 sets, daily range): BP systolic 110–151; BP diastolic 74–94; PULSE 85–137; RESP 14–20; TEMP 36.5–36.6; O2SAT 95–100
--- NOTE | ~2024-04-06 | CT_ITS ---
CT brain wo con Ordering provider: Pj Dove MD History: 79 years Male with . weakness . Comparison: February 05, 2024 Technique: CT of the head without contrast. Radiation reduction technique utilized.The dose-length product was 681 mGy-cm. FINDINGS: A BRAIN PARENCHYMA AND CSF SPACES: Moderate leukoaraiosis and diffuse cortical atrophy. Moderate athero matous disease. Vasogenic edema is seen in the left temporoparietal occipital area with effacement of the left lateral ventricle. Focal areas of encephalomalacia cannot be excluded. Ydah-[id number]-[id number] midlin e shift is seen of about 6 mm. The possibility of a mass in the left parietal area cannot be excluded . MRI with contrast is advised. Otherwise, The brain parenchyma and CSF spaces are normal. Small hypo density seen in the right cerebellar hemisphere adjacent to the fourth ventricle most likely old infa rct. VISUALIZED PARANASAL SINUSES: Well aerated. MASTOIDS: Well aerated. BONES: Postoperative changes in the left parietal bone is seen. Otherwise, The bones appear intact. SOFT TISSUES: Visualized nasopharynx is normal. Superficial soft tissues are normal. IMPRESSION: No definite acute infarct or hemorrhage. Postoperative changes in the left parietal area with vasogenic edema. No evidence of hemorrhage seen. Underlying mass cannot be excluded. MRI evaluation with contrast is advised. Efrp-be-hnfgz midline s hift of 6 mm is seen with effacement of the left lateral ventricle.. Reviewed, dictated and finalized at location A. TRICAL ENGINEERING TECHNOLOGIST IMPRESSION: No definite acute infarct or hemorrhage. Postoperative changes in the left parietal area with vasogenic edema. No eviden ce of hemorrhage seen. Underlying mass cannot be excluded. MRI evaluation with contrast is advised. Bpte-au-cujvo midline shift of 6 mm is seen with effacemen t of the left lateral ventricle..
--- NOTE | ~2024-04-06 | XR_ITS ---
XR chest 1V Ordering provider: Pj Dove MD History: 79 years Male with . weakness . Comparison: February 05, 2024 FINDINGS: MEDIASTINUM: The cardiac silhouette is moderately enlarged. Postoperative changes in the mediastinum. Congestive samia. LUNGS: No infiltrates, effusions or pneumothorax. Minimal bilateral interstitial thickening. OTHER: No free air under the diaphragm. IMPRESSION: Cardiomegaly with congestive samia which may indicate cardiac decompensation. Minimal interstitial hector nges which may indicate underlying fibrotic changes versus early edema versus pneumonitis. Reviewed, dictated and finalized at location A. PUSHER IMPRESSION: Cardiomegaly with congestive samia which may indicate cardiac decompensation. Mi nimal interstitial changes which may indicate underlying fibrotic changes versu s early edema versus pneumonitis.
--- NOTE | 2024-04-06 07:23 | ECG_ITS ---
Test Date: 2024-04-06 07:19:15 Measurements Intervals [place] Rate: 119 P: 0 OR: 0 QRS: 24 QRSD: 152 T: -25 QT: 350 QTc: 493 Interpretive Statements ATRIAL FIBRILLATION WITH RAPID VENTRICULAR RESPONSE RIGHT BUNDLE BRANCH BLOCK [120+ ms QRS DURATION, UPRIGHT V1, 40+ ms S IN I/aVL/V4/V5/V6] ST DEPRESSION, CONSIDER SUBENDOCARDIAL INJURY [0.1+ mV ST DEPRESSION] Compared to ECG 02/05/2024 20:46:08 Right bundle-branch block now present ST (T wave) deviation now present Myocardial infarct finding no longer present Electronically Signed On 04-06-2024 21:52:19 REIMBURSEMENT REP by Melissa House M.D.
--- NOTE | 2024-04-06 07:24 | ED.GENADULT ---
HPI - General Adult General Chief complaint: Fall Stated complaint: Weakness & fall Time Seen by Provider: 04/06/24 07:19 Source: patient and EMS Mode of arrival: EMS Limitations: no limitations History of Present Illness HPI narrative: 79 years old white male slid down of his bed down to the floor without any injuries. Patient's reports that patient been weak lately. Patient denies any new symptoms compared to yesterday. He denies hitting his head or back or extremities. 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 Patient denied any new facial drooping, patient looks like have right facial drooping which is chronic patient is scheduled to see his oncology radiologist tomorrow Dr. Singh PATIENT DID NOT TAKE HIS MEDICATION THIS MORNING, DID NOT EAT PRIOR TO ARRIVAL Related Data Home Medications ?Medication ?Instructions ?Recorded ?Confirmed ?Last Taken ?Type docusate sodium 100 mg capsule 100 mg PO BID PRN constipation 03/22/24 04/01/24 Unknown History Allergies Allergy/AdvReac Type Severity Reaction Status Date / Time diltiazem Allergy Intermediate hives Verified 04/01/24 08:14 Review of Systems Review of Systems: All systems reviewed & are unremarkable except as noted in HPI and below PMFSH Past Medical History Medical History Other fatigue Other chronic pain Encounter for screening for malignant neoplasm of colon Elevated LFTs Cervicalgia PVD (peripheral vascular disease) CAD (coronary artery disease) Bilateral carotid artery dissection Atrial fibrillation Atherosclerotic heart disease of [place] coronary artery without angina pectoris Back pain, chronic Essential (primary) hypertension Gait disorder Gastro-esophageal reflux disease without esophagitis Numbness of both lower extremities Pure hypercholesterolemia Type 2 diabetes mellitus without complications Surgical History Surgical History History of coronary artery stent placement S/P CABG (coronary artery bypass graft) x4 vessel, 07/2016 Family History Family History Father Cerebrovascular accident Mother Family history of lung cancer, Onset Age: 64 Sibling No problems noted. Other Family history of cardiovascular disease Hypertension Social History Social History Smoking packs per day: 1.5 Smoking cigarettes per day: 30.0 Years smoked: 22 Smoking pack-years: 33.00 Smoking status: Former smoker Tobacco type: cigarettes Second hand tobacco smoke exposure: Yes Smoking end date: 03/22/86 Alcohol intake: former Drinks per week: 7 Alcohol use details: [employer]KE OR STRAIGHT Substance use: former Substance use type: marijuana Other substance usage details: GUMMIES OCC. 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[employer] Gender identity (if verbalized by the patient): Male Sexual Orientation (if Verbalized by the Patient): Straight or Heterosexual Spiritual care concerns: No Exam Narrative: General appearance: Well-developed, well-nourished Skin: Normal color Head: Normocephalic, nontraumatic Eyes: Clear conjunctiva ENT: Oropharynx normal, ears normal, nose normal Neck: Supple, nontender Chest and respiratory: Airway patent, no respiratory distress, no accessory muscle use Heart: Irregular irregularity Abdomen: Soft, nontender, no organomegaly, quiet bowel sounds Musculoskeletal: Normal range of motion, nontender back Neurologic: Alert and oriented ?3, right facial drooping, weakness of the right lower extremity Course Consultations Consultation #1: DR SINGH ONCOLOGIST AT [facility] RECOMMENDS TO DISCHARGE PATIENT ON DECADRON 4 MG ONCE A DAY AND TO SEE HIM IN HIS OFFICE TOMORROW SCHEDULED. HE IS TELLING ME THAT PATIENT GETS BETTER AND DECADRON AND 1 C STOP IT SUBSEQUENTLY DEVELOPS NEUROLOGIC SYMPTOMS. Date: 04/06/24 Time: 12:20 Vital Signs Vital signs: Vital Signs Temperature 36.6 C 04/06/24 07:10 Pulse Rate 135 H 04/06/24 07:10 Respiratory Rate 18 04/06/24 07:10 Blood Pressure 110/90 04/06/24 07:10 Pulse Oximetry 100 04/06/24 07:10 Oxygen Delivery Room Air 04/06/24 07:10 Temperature 36.6 C 04/06/24 11:46 Pulse Rate 126 H 04/06/24 11:46 Respiratory Rate 20 04/06/24 11:46 Blood Pressure 151/84 H 04/06/24 11:46 Pulse Oximetry 99 04/06/24 11:46 Oxygen Delivery Room Air 04/06/24 07:10 Medical Decision Making Vital Signs Vital Signs: Vital Signs Temperature 36.6 C 04/06/24 07:10 Pulse Rate 135 H 04/06/24 07:10 Respiratory Rate 18 04/06/24 07:10 Blood Pressure 110/90 04/06/24 07:10 Pulse Oximetry 100 04/06/24 07:10 Oxygen Delivery Room Air 04/06/24 07:10 Temperature 36.6 C 04/06/24 11:46 Pulse Rate 126 H 04/06/24 11:46 Respiratory Rate 20 04/06/24 11:46 Blood Pressure 151/84 H 04/06/24 11:46 Pulse Oximetry 99 04/06/24 11:46 Oxygen Delivery Room Air 04/06/24 07:10 Lab Data 04/06/24 07:44 04/06/24 07:44 Labs: Lab Results 04/06/24 04/06/24 04/06/24 Range/Units 07:44 08:16 11:07 WBC 9.0 (4.5-10.0) K/mm3 RBC 3.45 L (4.6-6.20) M/mm3 Hgb 10.0 L (14.0-18.0) g/dL Hct 30.7 L (42.0-52.0) % MCV 89.0 (80-100) fl MCH 29.0 (26-34) pg MCHC 32.6 (32-36) g/dl RDW 15.2 H (11.5-14.5) % Plt Count 154 (150-375) k/mm3 MPV 10.0 (7.4-10.4) fl Immature Gran % (Auto) 1.6 H (0-0.5) % Neut % (Auto) 77.6 H (45.5-73.1) % Lymph % (Auto) 11.5 L (18.3-44.2) % [place] % (Auto) 7.0 (2.6-8.5) % Eos % (Auto) 1.9 (0-4.4) % Baso % (Auto) 0.4 (0.2-1.2) % Lymph # (Auto) 1.03 (0.9-3.2) K/mm3 [place] # (Auto) 0.6 (0.1-0.6) K/mm3 Eos # (Auto) 0.2 (0-0.3) K/mm3 Baso # (Auto) 0.0 (0.0-0.1) K/mm3 Abs Immat Gran (auto) 0.14 H (0.00-0.031) K/mm3 Absolute Neuts (auto) 7.0 H (1.3-6.7) K/mm3 Absolute Nucleated RBC 0.000 (0.0-0.012) K/mm3 Nucleated RBC % 0.0 (0.0-0.2) % PT 22.1 H (11.1-14.7) Seconds INR 1.9 APTT 33.3 (22.3-36.8) Seconds Sodium 140 (137-145) mmol/L Potassium 3.3 L (3.4-5.0) mmol/L Chloride 106 (98-107) mmol/L Carbon Dioxide 28 (22-30) mmol/L Anion Gap 6 (4-12) mmol/L BUN 25 H (9-20) mg/dL Creatinine 0.95 (0.7-1.3) mg/dL Estim Creat Clear Calc 60 ml/min Estimated GFR > 60 (59 - ) Glucose 113 H (65-110) mg/dL Calcium 9.4 (8.4-10.2) mg/dL Total Bilirubin 0.8 (0.2-1.3) mg/dL AST 25 (17-59) U/L ALT 21 (6-50) U/L Alkaline Phosphatase 47 (38-126) U/L Troponin I 0.016 0.017 (0.000-0.034) ng/mL Total Protein 6.0 L (6.3-8.2) g/dL Albumin 3.7 (3.5-5.1) g/dL Lipase 78 (23-300) U/L Urine Color Yellow (Yellow) Urine Appearance Clear (Clear) Urine pH 5.5 (5.0-9.0) Ur Specific [place] 1.024 (1.001-1.035) Urine Protein 1+ H (Negative) mg/dL Urine Glucose (UA) Negative (Negative) mg/dL Urine Ketones Trace H (Negative) mg/dL Ur Blood (Man) Negative (Negative) Urine Nitrate Negative (Negative) Urine Bilirubin Negative (Negative) Urine Urobilinogen 0.2 (<2.0) mg/dL Add Ur Microanalysis Reviewed Leukocyte Esterase Rfl Negative (Negative) СВЕТЛАНА/UL Urine RBC 3-5 H (0-2) /hpf Urine WBC 0-5 (0-3) /hpf Ur Squamous Epith Cells None seen (Few) /hpf Urine Bacteria None seen /hpf Urine Casts 0-2 Imaging Data Radiologist's impression: Impressions Head CT 04/06/24 08:05 IMPRESSION: No definite acute infarct or hemorrhage. Postoperative changes in the left parietal area with vasogenic edema. No evidence of hemorrhage seen. Underlying mass cannot be excluded. MRI evaluation with contrast is advised. [id number] midline shift of 6 mm is seen with effacement of the left lateral ventricle.. Chest X-Ray 04/06/24 08:18 IMPRESSION: Cardiomegaly with congestive samia which may indicate cardiac decompensation. Minimal interstitial changes which may indicate underlying fibrotic changes versus early edema versus pneumonitis. ECG Data EKG #1: Attestation: I personally reviewed and interpreted this ECG as follows: ECG completion date: 04/06/24 Interpretation: AFIB WITH RVR AT 119 BEATS PER MINUTE Critical Care Time Critical Care Time Critical Care Time: No Discharge Plan Discharge Clinical Impression: Vasogenic brain edema, Weakness Patient Disposition: Home, Self-Care Condition: Stable Instructions: Weakness (ED), Brain Tumors (DC) Additional Instructions: RETURN IF SYMPTOMS ARE WORSENING , TAKE TYLENOL NEEDED FOR ACHES AND PAIN, CONTINUE HOME MEDICATIONS. SEE YOUR ONCOLOGIST TOMORROW Patient Language: Spanish Prescriptions: New dexamethasone 4 mg tablet 4 mg PO DAILY Qty: 10 0RF No Action insulin glargine [Lantus Solostar U-100 Insulin] 100 unit/mL (3 mL) insulin pen 18 unit subcut QAM Qty: 30 0RF docusate sodium 100 mg capsule 100 mg PO BID PRN (Reason: constipation) acetaminophen 500 mg Tablet 500 mg PO Q6H PRN (Reason: Breakthrough Pain) Qty: 90 0RF loperamide 2 mg Capsule 2 mg PO Q2H PRN (Reason: Diarrhea) Qty: 30 0RF lisinopril 5 mg Tablet 5 mg PO QAM Qty: 30 0RF metoprolol succinate [Toprol XL] 25 mg Tablet Extended Release 24 Hr 25 mg PO QAM Qty: 30 0RF metformin 500 mg tablet 1,000 mg PO BID Qty: 60 0RF Rx Instructions: with meals cetirizine 10 mg tablet 10 mg PO QAM Qty: 30 0RF levetiracetam 500 mg tablet 500 mg PO BID Qty: 60 0RF clopidogrel [Plavix] 75 mg tablet 75 mg PO DAILY Qty: 30 0RF (DME) blood sugar diagnostic Strip See Rx Instructions .ROUTE .MEDSUPPLY Qty: 10 0RF Rx Instructions: As directed tramadol 50 mg tablet 50 mg PO Q6H PRN (Reason: Pain) Qty: 20 0RF triamcinolone acetonide 0.1 % cream 1 applic TOPICAL BID PRN (Reason: irritation) Qty: 1 0RF (DME) lancets Misc See Rx Instructions .ROUTE .MEDSUPPLY Qty: 50 0RF Rx Instructions: As directed famotidine 20 mg tablet 20 mg PO DAILY PRN (Reason: GERD) Qty: 30 0RF pantoprazole 40 mg tablet,delayed release (DR/EC) 40 mg PO HS Qty: 30 0RF ferrous sulfate 325 mg (65 mg iron) tablet 325 mg PO DAILY Qty: 30 0RF nystatin 100,000 unit/gram cream 1 applic TOPICAL BID Qty: 30 1RF Rx Instructions: apply BID insulin lispro [Humalog KwikPen Insulin] 100 unit/mL insulin pen 4 unit SUBCUT TIDWMEAL Qty: 15 0RF rosuvastatin 20 mg tablet 20 mg PO DAILY Qty: 30 0RF Xarelto 20 mg Tablet 20 mg PO DAILY Qty: 30 0RF Vitamin D3 Complete 18 mg iron-800 mcg-150 mg tablet 1 tablet PO HS Qty: 30 0RF dexamethasone 1 mg Tablet 6 mg PO DAILY@0800 Qty: 12 0RF dexamethasone 1 mg Tablet 3 mg PO DAILY@0800 Qty: 21 0RF dexamethasone 4 mg Tablet 4 mg PO DAILY@0800 Qty: 7 0RF dexamethasone 1 mg Tablet 2 mg PO DAILY@0800 Qty: 14 0RF Follow-up/Referrals: Stanley Donovan DO [Primary Care Provider] - Quality Stroke Date of last known normal: 04/06/24 Stroke Scale Stroke Scale 1: 1a Level of consciousness: alert-0 1b Level of consciousness questions: answers both correctly-0 1c Level of consciousness commands: obeys both correctly-0 2 Best gaze: normal-0 3 Visual: no visual loss-0 4 Facial palsy: minor paralysis-1 5a Motor: left arm: no drift-0 5b Motor: right arm: no drift-0 6a Motor: left leg: no drift-0 6b Motor: right leg: some effort/gravity-2 7 Limb ataxia: present in one limb-1 8 Sensory: normal-0 9 Best language: no aphasia-0 10 Dysarthria: normal-0 11 Extinction and inattention: no abnormality-0 Level:: 4
[2024-04-06 07:53] LABS: Basophils Percent Auto 0.4 % (0.2-1.2); Eosinophils Absolute Auto 0.2 K/mm3 (0-0.3); Eosinophils Percent Auto 1.9 % (0-4.4); Hematocrit 30.7 % (42.0-52.0); Immature Granulocyte Absolute 0.14 K/mm3 (0.00-0.031); Immature Granulocyte Percent A 1.6 % (0-0.5); Lymphocytes Absolute Auto 1.03 K/mm3 (0.9-3.2); Lymphocytes Percent Auto 11.5 % (18.3-44.2); Mean Corpuscular HGB Conc 32.6 g/dl (32-36); Monocytes Absolute Auto 0.6 K/mm3 (0.1-0.6); Neutrophils Percent Auto 77.6 % (45.5-73.1); Platelet Count Result 154 k/mm3 (150-375); Red Blood Count 3.45 M/mm3 (4.6-6.20); Red Cell Distribution Width 15.2 % (11.5-14.5)
[2024-04-06 08:05] LABS: Alanine Aminotransferase 21 U/L (6-50); Albumin Level 3.7 g/dL (3.5-5.1); Alkaline Phosphatase 47 U/L (38-126); Anion Gap 6 mmol/L (4-12); Aspartate Amino Transferase 25 U/L (17-59); Bilirubin,Total 0.8 mg/dL (0.2-1.3); Blood Urea Nitrogen 25 mg/dL (9-20); Calcium 9.4 mg/dL (8.4-10.2); Carbon Dioxide 28 mmol/L (22-30); Chloride 106 mmol/L (98-107); Estimated CRCL calculation 60 ml/min; Estimated Glomerular Filt Rate > 60; Glucose 113 mg/dL (65-110); Lipase 78 U/L (23-300); Potassium 3.3 mmol/L (3.4-5.0); Sodium 140 mmol/L (137-145)
[2024-04-06 08:09] LABS: INR 1.9; Prothrombin Time 22.1 Seconds (11.1-14.7)
[2024-04-06 08:10] LABS: Partial Thromboplastin Time 33.3 Seconds (22.3-36.8)
[2024-04-06 08:15] LABS: Troponin I 0.016 ng/mL (0.000-0.034)
[2024-04-06 08:35] LABS: Add Urine Microscopic? YES; Appearance Urine Clear (Clear); Bacteria Urine None Seen /hpf; Bilirubin Urine Negative (Negative); Blood Urine Negative (Negative); Color Urine Yellow (Yellow); Glucose Urine UA Negative (Negative); Ketones Urine Trace mg/dL (Negative); Leukocyte Esterase Ur Negative LEU/UL (Negative); Need Manual Microscopic Reviewed; Nitrate Urine Negative (Negative); Non Pathogenic Casts 0-2; Protein Urine 1+ mg/dL (Negative); Specific Grav Ur 1.024 (1.001-1.035); Squamous Epithelial Cell Urine None Seen /hpf (Few); Urobilinogen Urine 0.2 mg/dL (<2.0); WBC Urine 0-5 /hpf (0-3); pH Urine 5.5 (5.0-9.0)
--- NOTE | 2024-04-06 10:50 | ECG_ITS ---
Test Date: 2024-04-06 10:50:15 Measurements Intervals [place] Rate: 107 P: 0 MN: 0 QRS: 39 QRSD: 148 T: -12 QT: 368 QTc: 491 Interpretive Statements ATRIAL FIBRILLATION WITH RAPID VENTRICULAR RESPONSE RIGHT BUNDLE BRANCH BLOCK [120+ ms QRS DURATION, UPRIGHT V1, 40+ ms S IN I/aVL/V4/V5/V6] Compared to ECG 04/06/2024 07:19:15 NO SIGNIFICANT CHANGES Electronically Signed On 04-07-2024 15:10:00 DEVELOPMENT ADMINISTRATOR by Nehemias Starr M.D.
[2024-04-06 11:36] LABS: Troponin I 0.017 ng/mL (0.000-0.034)
[2024-04-06] MEDS: dexAMETHasone SOD PHOS INJ 10 MG/ML 1 ML VIAL IV PUSH (12:26)
[2024-04-06] MEDS: METOPROLOL TARTRATE 25 MG TABLET PO (12:35)
== END 2024-04-06 13:04 | disposition home or self-care (01) ==
PROVIDERS: Emergency Provider Emergency Medicine; PCP Internal Medicine
DX: G93.6 Cerebral edema (principal); R53.1 Weakness; I48.91 Unspecified atrial fibrillation; I73.9 Peripheral vascular disease, unspecified; I25.10 Atherosclerotic heart disease of native coronary artery without angina pectoris; I10 Essential (primary) hypertension; K21.9 Gastro-esophageal reflux disease without esophagitis; E11.9 Type 2 diabetes mellitus without complications
CPT/HCPCS: 36415; 70450; 71045; 80053; 81001; 83690; 84484; 85025; 85610; 85730; 93005; 96374; 99284; A9270; J1100